=== PATIENT | male | born 1965 | race Caucasian/White ===

== ENCOUNTER → 2017-06-15 | Outpatient (CLI) | payer OTHER ==
[~2017-06-15] VITALS: Ht 177.8 cm; Wt 151.1 kg
[~2017-06-15] MED LIST: METAMUCIL PO; RANI150T3 PO
[2017-06-15 13:09] VITALS: BP 136/91; PULSE 88; Ht 177.8 cm; Wt 151.1 kg
== END | disposition home or self-care (01) ==
LOC: C.NEUR 12:50
PROVIDERS: ATTEND Physician Assistant Medical
DX: G47.30 Sleep apnea, unspecified (principal); E66.01 Morbid (severe) obesity due to excess calories; Z68.41 Body mass index [BMI] 40.0-44.9, adult; R03.0 Elevated blood-pressure reading, without diagnosis of hypertension

== ENCOUNTER → 2017-06-30 | Outpatient (CLI) | payer OTHER ==
--- NOTE | 2017-07-02 16:34 | POLYSOMNOGRAPH REPORT ---
CLINICAL DATA: A 52-year-old male referred by Laura Chaudhari and Dr. Nixon for a sleep study. He had a sleep study in 2004 and was on auto CPAP with very poor compliance. 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 He was sent for a home sleep apnea test to determine the severity of the sleep apnea. He does have a BMI of 47.8. On the evening of 06/30/2017, a home sleep apnea was performed a Panvidea type 3 monitor. RECORDING RESULTS: Total recording time was 10 hours. The patient's estimated sleep time and the patient monitoring time was 8.6 hours. RESPIRATORY DATA: Severe sleep apnea was documented. The LAMONTE was 40.3. There were 214 obstructive, 50 mixed, and 1 central apneic episode. There were 80 hypopneic episodes. The longest respiratory event was 81 seconds. OXIMETRY DATA: Significant nocturnal hypoxemia was seen. Oxygen cindy was 59%. Mean saturation was 87%. Time below 89% was 196 minutes. HEART RATE DATA: Heart rates ranged from 54-79 beats per minute. SNORING DATA: Snoring was recorded throughout the night. NEWS EDITOR'S COMMENTS: The patient was snoring throughout the test. He had many episodes seen. The patient stated he did not sleep very well after 3:00 a.m. which correlates with the time when he had the majority of his apneic episodes occurring. He also had more significant oxygen desaturation at that time. IMPRESSION: Severe sleep apnea/hypopnea with severe nocturnal hypoxemia. RECOMMENDATIONS: The patient would benefit from a CPAP titration study since he had difficulty with auto CPAP in the past. AIXA
== END | disposition home or self-care (01) ==
LOC: C.NEUR 09:00
PROVIDERS: ATTEND Physician Assistant Medical
DX: G47.30 Sleep apnea, unspecified (principal)

== ENCOUNTER → 2017-07-20 | Outpatient (CLI) | payer OTHER ==
[~2017-07-20] VITALS: Ht 179.1 cm; Wt 153.1 kg
[2017-07-20 14:13] VITALS: BP_SYST 126; BP_SYST 132; BP_DIAS 88; BP_DIAS 90; PULSE 103; PULSE 112; Ht 179.1 cm; Wt 153.1 kg
== END | disposition home or self-care (01) ==
LOC: C.NEUR 12:34
PROVIDERS: ATTEND Physician Assistant Medical
DX: G47.33 Obstructive sleep apnea (adult) (pediatric) (principal); G47.34 Idiopathic sleep related nonobstructive alveolar hypoventilation; E66.01 Morbid (severe) obesity due to excess calories; Z68.41 Body mass index [BMI] 40.0-44.9, adult; F43.20 Adjustment disorder, unspecified; Z72.0 Tobacco use; F32.9 Major depressive disorder, single episode, unspecified

== ENCOUNTER → 2017-08-10 | Outpatient (CLI) | payer OTHER ==
--- NOTE | 2017-08-11 06:49 | PAP/PSG TECHNICIAN REPORT ---
[facility] Wrapper Sorter Polysomnogram Report Study name: None Report date: 08/11/2017 Study date: 08/10/2017 Referring Physician: Laura Chaudhari PA-C Name: LOBO DIANA Interpreting Physician: Renny Young M.D. Date of : 1965 Wrapper Sorter: Kin Quick RPSGT. Sex: Male Age: 52 StudyType: PSG PAP Weight: 337 lbs 18 inches Height: 52 years, Height 5' 10" Neck Circum: BMI: 48.35 Medications: ZANTAC 75 MG Patient History PATIENT HAD A SLEEP STUDY DONE IN 2004 AND WAS POSITIVE FOR MILD YESSI. HE WORE CPAP FOR ABOUT A YEAR AND THEN GAVE UP ON IT FROM INTOLERANCE. HE RECENTLY HAD A HOME SLEEP STUDY DONE AND RESULTS SHOWED AN LAMONTE OF 40.3. HE IS HERE TODAY FOR A CPAP TITRATION. ESS = 11 RM 6 Parameters Monitored NPSG: E1-M2, E2-M1, Fp1-M2, Fp2-M1, F3-M2, F4-M2, F4-M1, C3-M2, C4-M2, C4-M1, O1-M2, O2-M2, O2-M1, T3-M2, T4-M1, P3-M2, P4-M1, CHIN1, CHIN2, HR, EKG, Legs, PFLOW, SNOR, FLOW, CFLOW, Tidal Volume, THOR, ABDO, SpO2, PLTH, CPRESS, ETCO2 Wave, ETCO2, pH Sleep Architecture Sleep Stages Time at Lights Off 10:50:31 PM STAGES Time (min.) TST (%) Time at Lights On 5:46:31 AM Wake 107.5 -- Total Recording Time (TRT) 416.50 min. N1 17.0 6 Total Sleep Period (TSP) 387.0 min. N2 154.0 50 Total Sleep Time (TST) 308.5min. N3 53.5 17 Awake Time 108.0 min. REM 84.0 27 Wake after Sleep Onset 78.5 min. Sleep Efficiency (SE) 74 % Sleep Onset Latency (SACHIN) 29.0 min. Number of Stage 1 Shifts None Awakenings 23 Stage Changes 67 Number of REM periods 3 REM 84.0 27 REM Latency 137.5 min. NREM 224.5 73 Body Position Analysis Supine Right Left Side Prone Vertical Total Sleep Time (min.) 176.3 206.5 0.0 206.50 0.0 0.0 Total Sleep Time (%) 33% 67% 0% 67 0% N/A% Total Sleep Time REM (min.) 30.5 53.5 0.0 None 0.0 0.0 Total Sleep Time NREM (min.) 71.5 153.0 0.0 None 0.0 0.0 Intermittent Wake (min.) 74.3 33.2 0.0 None 0.0 0.0 Total Sleep Period (%) 38% None None None None None Arousals Myoclonus (PLM) * Events Count Index Events Count Index Spontaneous 18 4 Events Awake (PLMW) 65 36.3 Respiratory 17 3.7 Events Asleep w/ Arousal (PLMA) 2 0.4 PLM 2 0 Events Asleep w/o Arousal (PLMS) 62 12.1 Snoring 7 1 Total Asleep 64 12.4 Total 43 8 Total 129 19 Respiratory Analysis * CA OA MA CH H RERA Total Count 4 10 0 0 70 2 84 Index 0.8 1.9 0.0 0 13.6 0 16.7 Mean Duration 20.3 12.8 0.0 0.00 20.3 14.1 19.3 Longest Duration 30.3 19.6 0.0 0.00 0.0 14.4 49.0 Respiratory Event Summary Total Supine ~Supine Right Left Prone REM NREM Apneas Count 14 12 2 2 N/A N/A 4 10 Index 2.7 7 1 0.6 N/A N/A 3 3 Hypopneas (4% Desat) Count 70 6 64 64 N/A N/A 6 64 Index 13.6 3.5 19 18.6 N/A N/A 4.3 17.1 Apneas & All Hypopneas Count 84 18 66 66 N/A N/A 10 74 Index 16.3 11 19 19 N/A N/A 7.1 19.8 Respiratory Events (Technical Program Manager+All Hyp+RERA) Count 84 19 67 67 N/A N/A 10 74 Index 16.7 11 19 19.5 N/A N/A 7.1 20.3 Respiratory Related Arousal Count 17 19 11 11 N/A N/A 0 19 Index 3.7 5 3 3 N/A N/A 0 5 Snoring Analysis Supine Right Left Prone REM NREM Total Snore duration 30.3 min Snores count 30 1,009 N/A N/A 3 1,036 1,039 Snore mean duration 1.7 Sec Snores index 18 293 N/A N/A 2.1 276.9 202.1 TST with snoring (%) 9.8% Desaturation Event Summary: Minimum %SpO2 Event Count Mean/Min/Max Duration(sec.) Desaturation Index % Time In Bed > 90 62 28.7 / 4.5 / 61.2 12.0 76.3 86 - 90 13 38.7 / 4.3 / 68.3 13.4 14.3 81 - 85 20 22.8 / 6.3 / 57.2 92.9 3.2 76 - 80 31 19.6 / 7.0 / 73.4 98.3 4.7 71 - 75 7 13.4 / 7.0 / 23.3 64.7 1.6 66 - 70 0 N/A 0.0 0.0 61 - 65 0 N/A 0.0 0.0 56 - 60 0 N/A 0.0 0.0 51 - 55 0 N/A 0.0 0.0 < 50 0 N/A 0.0 0.0 Total REM NREM Awake <50% 0.0 min. 0.0 min. 0.0 min. 0.0 min. 51 - 60% 0.0 min. 0.0 min. 0.0 min. 0.0 min. 61 - 70% 0.0 min. 0.0 min. 0.0 min. 0.0 min. 71 - 80% 25.4 min. 0.0 min. 25.4 min. 0.0 min. 81 - 90% 71.1 min. 12.7 min. 40.0 min. 18.4 min. 91 - 100% 309.8 min. 71.2 min. 158.7 min. 80.0 min. Average 91 92 90 92 Minimum SpO2 71 84 71 81 Desaturation Event Index 16.4 8.6 21.6 11.7 # Desat. Events below 89% 76 4 68 4 Time(%) with Saturation below 89% 13.1 0.3 11.9 0.9 Time(min.) with Saturation below 89% 53.2 1.4 48.2 3.6 Time (mins) REM (mins) NREM (mins) % of TST SpO2 Below 90% 89 9 N80 19.0 SpO2 Below 88% 32 0 0 14 Heart Rate Analysis Min (bpm) Max (bpm) Average (bpm) Awake 66 132 85 NREM 68 127 86 REM 76 108 92 Overall 68 127 88 Supplemental O2 Values Minimum O2 level: None Value Start Time End Time Wrapper Sorter Comments Mr. Diana slept in the right and supine positions. No cardiac arrhythmia noted. Leg movements noted. No bruxism noted. CPAP was initiated at +4 CMH2O and up-titrated to an optimal level of +16 CMH2O, which nearly eliminated all respiratory events and snoring. A Resmed Air touch F20 full face size medium mask was used during titration Mr. Diana awoke to use the restroom 1 time during the night. Mr. Diana stated I slept as well as I do when I am in my own bed. The final report will be interpreted and signed by a sleep physician. The completed physician report will then be placed in the patient medical record. Therapy Event: Therapy (cm H20) 4 5 6 7 8 9 10 Total Time at Pressure (min.) 53.7 21.2 6.0 19.4 8.2 8.8 10.5 TST at Pressure (min.) 5.7 2.7 3.5 5.4 8.2 6.3 10.5 # Periods 1 1 1 1 1 1 1 Sleep Onset (min.) 29.0 0.0 0.0 0.0 0.0 0.0 0.0 REM Onset (min.) N/A N/A N/A N/A N/A N/A N/A Sleep Efficiency % 10 12 58 27 100 71 100 Wakefulness (%) 89.4 87.3 41.5 72.2 0.0 28.4 0.0 Wakefulness (min.) 48.0 18.5 2.5 14.0 0.0 2.5 0.0 NREM 1 (%) 10.6 10.3 27.3 18.0 6.1 5.7 0.0 NREM 1 (min.) 5.7 2.2 1.6 3.5 0.5 0.5 0.0 NREM 2 (%) 0.0 2.4 31.2 9.8 93.9 65.9 74.2 NREM 2 (min.) 0.0 0.5 1.9 1.9 7.7 5.8 7.8 NREM 3 (%) 0.0 0.0 0.0 0.0 0.0 0.0 25.8 NREM 3 (min.) 0.0 0.0 0.0 0.0 0.0 0.0 2.7 REM (%) 0.0 0.0 0.0 0.0 0.0 0.0 0.0 REM (min.) 0.0 0.0 0.0 0.0 0.0 0.0 0.0 # Arousals 8 4 3 2 5 5 2 Arousal Index 84.7 89.4 51.1 22.3 36.8 47.6 11.4 # Snore 15 1 2 34 95 54 182 Snore Index 158.8 22.3 34.1 378.3 699.0 514.5 1,041.7 AHI 31.8 67.0 102.2 22.3 66.2 57.2 28.6 AHI Supine 31.8 67.0 102.2 107.0 N/A N/A N/A AHI Non-Supine N/A N/A N/A 0.0 66.2 57.2 28.6 NREM AHI 31.8 67.0 102.2 22.3 66.2 57.2 28.6 REM AHI N/A N/A N/A N/A N/A N/A N/A RDI 31.8 89.4 102.2 22.3 73.6 57.2 28.6 # Obstructive 2 2 3 2 1 0 0 # Central Ap 0 0 0 0 0 0 0 # Mixed 0 0 0 0 0 0 0 # Hypopneas 1 1 3 0 8 6 5 RERAS 0 1 0 0 1 0 0 Total Respiratory Events 3 4 6 2 10 6 5 Time Below SpO2 89.00% (min.) 0.1 0.2 0.1 1.5 3.7 2.9 7.9 Mean NREM SpO2 (%) 91 91 91 90 89 89 86 Mean REM SpO2 (%) N/A N/A N/A N/A N/A N/A N/A Mean Sleep SpO2 (%) 91 91 91 90 89 89 86 Min NREM SpO2 (%) 88 87 88 88 83 82 79 Min REM SpO2 (%) N/A N/A N/A N/A N/A N/A N/A Position Supine (min.) 5.7 2.7 3.5 1.1 0.0 0.0 0.0 Position Non-supine (min.) 0.0 0.0 0.0 4.3 8.2 6.3 10.5 LM Index Sleep 0.0 0.0 0.0 0.0 36.8 38.1 34.3 LM Index NREM 0.0 0.0 0.0 0.0 36.8 38.1 34.3 LM Index REM N/A N/A N/A N/A N/A N/A N/A Mean Heart Rate (bpm) 76 77 76 77 79 80 83 Min Heart Rate (bpm) 68 68 72 73 69 75 71 Therapy (cm H20) 11 12 13 14 15 16 Total Time at Pressure (min.) 8.1 7.3 9.7 12.0 140.2 111.1 TST at Pressure (min.) 8.1 7.3 9.7 12.0 133.2 96.1 # Periods 1 1 1 1 1 1 Sleep Onset (min.) 0.0 0.0 0.0 0.0 0.0 0.0 REM Onset (min.) N/A N/A N/A N/A 1.7 0.0 Sleep Efficiency % 100 100 100 100 95 86 Wakefulness (%) 0.0 0.0 0.0 0.0 5.0 13.5 Wakefulness (min.) 0.0 0.0 0.0 0.0 7.0 15.0 NREM 1 (%) 0.0 0.0 0.0 0.0 0.7 1.8 NREM 1 (min.) 0.0 0.0 0.0 0.0 1.0 2.0 NREM 2 (%) 0.0 0.0 0.0 75.3 44.9 50.9 NREM 2 (min.) 0.0 0.0 0.0 9.0 63.0 56.5 NREM 3 (%) 100.0 100.0 100.0 24.7 16.2 0.0 NREM 3 (min.) 8.1 7.3 9.7 3.0 22.7 0.0 REM (%) 0.0 0.0 0.0 0.0 33.1 33.8 REM (min.) 0.0 0.0 0.0 0.0 46.4 37.6 # Arousals 3 0 3 1 2 5 Arousal Index 22.3 0.0 18.5 5.0 0.9 3.1 # Snore 146 140 194 145 18 13 Snore Index 1,087.5 1,146.6 1,197.6 727.7 8.1 8.1 AHI 89.4 106.5 67.9 5.0 4.1 2.5 AHI Supine N/A N/A N/A N/A N/A 2.7 AHI Non-Supine 89.4 106.5 67.9 5.0 4.1 0.0 NREM AHI 89.4 106.5 67.9 5.0 2.1 0.0 REM AHI N/A N/A N/A N/A 7.8 6.4 RDI 89.4 106.5 67.9 5.0 4.1 2.5 # Obstructive 0 0 0 0 0 0 # Central Ap 0 0 0 0 1 3 # Mixed 0 0 0 0 0 0 # Hypopneas 12 13 11 1 8 1 RERAS 0 0 0 0 0 0 Total Respiratory Events 12 13 11 1 9 4 Time Below SpO2 89.00% (min.) 8.0 7.3 9.6 6.5 0.3 1.5 Mean NREM SpO2 (%) 80 77 77 85 93 92 Mean REM SpO2 (%) N/A N/A N/A N/A 93 92 Mean Sleep SpO2 (%) 80 77 77 85 93 92 Min NREM SpO2 (%) 73 71 71 75 90 88 Min REM SpO2 (%) N/A N/A N/A N/A 87 84 Position Supine (min.) 0.0 0.0 0.0 0.0 0.0 89.0 Position Non-supine (min.) 8.1 7.3 9.7 12.0 133.2 7.1 LM Index Sleep 29.8 8.2 18.5 0.0 11.3 10.0 LM Index NREM 29.8 8.2 18.5 0.0 13.1 1.0 LM Index REM N/A N/A N/A N/A 7.8 24.0 Mean Heart Rate (bpm) 90 92 94 95 91 86 Min Heart Rate (bpm) 82 82 83 85 76 76
--- NOTE | 2017-08-11 19:27 | POLYSOMNOGRAPH REPORT ---
CLINICAL DATA: 52-year-old male with BMI of 48.4 referred by Laura Chaudhari, myself and Dr. Nixon for a CPAP titration study. He had a sleep study in 2004 which showed mild sleep apnea. Her wore CPAP for a year and then stopped because of intolerance. He had a home sleep apnea test performed recently which showed severe sleep apnea with an LAMONTE of 40.3. His [place] sleepiness score is 11/24. SLEEP ARCHITECTURE: Total sleep period was 387 minutes. Total sleep time was 308.5 minutes divided between 224.5 minutes of non-REM sleep and 84 minutes of REM sleep. Sleep onset latency was 29 minutes. REM latency was 137.5 minutes. Sleep efficiency was 74%. Wake after sleep onset was 78.5 minutes. Sleep consisted of stage N1 6%, stage N2 50%, stage N3 17%, and REM 27%. AROUSAL DATA: 43 arousals were recorded for an index of 8 per hour. PLM DATA: 64 limb movements during sleep were noted for an index of 12.4 per hour with arousal index of 0.4 per hour. RESPIRATORY DATA: The AHI was 16.3. There were 4 central and 10 obstructive apneic episodes. The longest duration of apnea was 30.3 seconds. There were 70 hypopneic episodes with a mean duration of 20.3 seconds. OXIMETRY DATA: Nocturnal hypoxemia was seen. Oxygen cindy was 71% during non-REM sleep. Mean saturation was 91%. Time below 88% was 32 minutes. EKG: Heart rates ranged from 68-127 beats per minute. No arrhythmias were noted. CERTIFIED MASTER SAFE TECHNICIAN'S COMMENTS AND TREATMENT SUMMARY: The patient slept in the right and supine positions. He used a ResMed Air Touch F20 full facemask size medium. He was started on CPAP and titrated up to his final pressure setting of 16 cm water pressure. At his final pressure setting, he slept for 96 minutes with an AHI of 2.5. IMPRESSION: Severe sleep apnea/hypopnea corrected with CPAP 16 cm water pressure using a ResMed Air Touch F20 full face size medium mask. RECOMMENDATIONS: The patient should be started on the above noted treatment regimen and seen back in followup within 90 days to document efficacy and compliance. [facility]ITAL[facility]
== END | disposition home or self-care (01) ==
LOC: C.NEUR 21:00
PROVIDERS: ATTEND Physician Assistant Medical
DX: G47.33 Obstructive sleep apnea (adult) (pediatric) (principal)

== ENCOUNTER 2022-03-01 18:21 | Inpatient (IN) ==
[2022-03-01] MEDS ORDERED: NITROGLYCERIN SL 0.4 MG/TAB TAB SL PRN (19:19)
[2022-03-01] MEDS ORDERED: ASPIRIN CHEW 324 MG PO STA (19:19)
[2022-03-01] MEDS ORDERED: SODIUM CHLORIDE 0.9% 1000ML 1,000 ML IV ONE (19:31)
--- NOTE | 2022-03-01 19:31 | Emergency Department Note ---
History of Present Illness General Chief Complaint: Shortness of Breath/Dyspnea Stated Complaint: SOB, CHEST TIGHTNESS, R LEG SWELLING Time Seen by Provider: 03/01/22 19:07 History of Present Illness Provider Complaint: shortness of breath Onset (ago): day(s) Severity: moderate Consistency/Duration: + improved Relieved By: + rest Exacerbated By: + exertion Context: no recent illness, no occurred during exertion, no choking/aspiration, no medication noncompliance, no recent travel or no trauma/injury Associated symptoms: + chest pain, + lower extremity pain (Lower extremity swelling and pain no trauma) and + palpitations; no pain with inspiration, no fever, no cough, no sputum production, no polyuria, no paresthesias, no hem optysis, no diaphoresis, no nausea/vomiting, no syncope, no abdominal pain, no rash, no sense of impending doom, no chest congestion or no lightheadedness Treatment prior to arrival: none Home Medications Medication Instructions Recorded Confirmed Type No Known Home Medications 01/31/21 03/01/22 History Allergies Allergy/AdvReac Type Severity Reaction Status Date / Time No Known Drug Allergies Allergy Unknown N/A Verified 03/01/22 19:50 Past Med/Surg History Medical History (Updated 03/01/22 @ 22:07 by Lucas Klein) Diabetes mellitus, type 2 no meds, diet controlled Morbid obesity with BMI of 40.0-44.9, adult Sleep apnea cpap Surgical History History of arthroscopy of left knee meniscus repair History of colonoscopy with polypectomy History of esophagogastroduodenoscopy (EGD) History of wisdom tooth extraction Family History Father Sleep apnea Congestive heart failure COPD (chronic obstructive pulmonary disease) Grandfather (Paternal) Family history of diabetes mellitus Other No family history of adverse response to anesthesia Social History Smoking Status: Never smoker Tobacco Type: Smokeless Tobacco (Dip or Chew) Second Hand Exposure: No; Hx Alcohol Use: Yes Alcohol type: beer Hx Substance Use: No Preferred Language: Kiswahili Communication Ability: Effective Child Care Attendant Required: No Beliefs That Will Affect Care: None marital status: Current Living Situation: Spouse current occupational status: employed Feels Safe at Home: Yes Assistive Devices: CPAP and Glasses Review of Systems A total of 10 systems reviewed and were otherwise negative Physical Exam Vital Signs: Vital Signs - 24 hr 03/01/22 18:22 03/01/22 18:43 03/01/22 19:20 Temperature 37.0 C 36.8 C Temperature Source Oral Temporal Artery Sc an Pulse Rate 110 H 105 H Pulse Rate [Right Finger] 104 H Pulse Rhythm Regular Pulse Rhythm [Righ t Finger] Regular Pulse Strength [Ri ght Finger] Normal Respiratory Rate 20 20 Respiratory Effort / Characteristics Non-Labored Respiratory Depth Normal Respiratory Patter n Regular Blood Pressure 140/96 Blood Pressure [Ri ght Arm] 147/100 H Blood Pressure Melody n 110 Blood Pressure Melody n [Right Arm] 115 Blood Pressure Pos ition Sitting Blood Pressure Pos ition [Right Arm] Lying Pulse Oximetry 93 94 93 Oxygen Delivery Me thod Room Air Room Air Room Air Sepsis Recent Feve r Within 48 Hours No Sepsis New/Unexpla ined Change in Men ayan Status No Sepsis Action Take n by Nursing No Action Required Physical Exam: Physical Exam GENERAL: He is oriented to person, place, and time. He appears well-developed and well-nourished. He does not appear distressed. HENT: Exam performed. - Head: Normocephalic and atraumatic. - Right Ear: External ear normal. No mastoid tenderness. - Left Ear: External ear normal. No mastoid tenderness. - Mouth/Throat: The oropharynx is clear and moist. No trismus in the jaw. No dental abscesses or uvula swelling. No oropharyngeal exudate or tonsillar abscesses. EYES: Conjunctivae and EOM are normal. Pupils are equal, round, and reactive to light. Right eye exhibits no discharge. Left eye exhibits no discharge. No scleral icterus. NECK: Normal range of motion. Neck supple. No JVD present. No spinous process tenderness present. No carotid bruit present. No rigidity. No tracheal deviation and normal range of motion present. No Brudzinski's sign and no Kernig's sign noted. CV: Tachycardic rate, regular rhythm, normal heart sounds and intact distal pulses. Palpable radial pulses bue. PULM/CHEST: Effort normal and breath sounds normal. No respiratory distress. No stridor. He has no wheezes. He has no rales. - Chest Wall: He exhibits no tenderness. ABD: The abdomen is soft. Bowel sounds are normal. He has no distension. No mass is present. There is no tenderness. There is no rebound, no guarding, no Odom's sign and no tenderness at McBurney's point. Rovsig negative. MUSC/SKEL: Swelling and tenderness over the right lower extremity. Palpable DP and PT pulses bilateral lower extremities. Compartment soft bilaterally. NEURO: He is alert and oriented to person, place, and time. He has normal strength. No cranial nerve deficit or sensory deficit. Coordination and gait normal. GCS eye subscore is 4. GCS verbal subscore is 5. GCS motor subscore is 6. Cerebellar tests wnl. SKIN: Skin is warm and dry. He is not diaphoretic. PSYCH: He has a normal mood and affect. Behavior is normal. Judgment and thought content normal. Course Course 1906: The patient was evaluated in room A2. A complete history and physical exam was performed Cardiac monitoring: An order was placed for continuous cardiac monitoring. The monitor shows a rate of 110 with sinus tachycardia rhythm 220: Patient remains tachycardic. Oxygen saturation stable on room air. Labs show elevated troponin. Ultrasound of the lower extremity shows an extensive DVT in the popliteal posterior tibial anterior tibial and peroneal vein. There is also a large saddle PE bilateral lobar segmental and subsegmental pulmonary emboli in all lungs bilaterally with severe clot burden greater on the left. There is right ventricular strain. [facility] with [facility] his asking to speak with ICU if the patient needs tPA. Clinically it does not appear the patient needs thrombolytics at this time as he has normal blood pressure normal oxygen saturation and is in no respiratory distress. Heparin started for the patient. 2214: Spoke with ICU team who states that the patient is stable at this facility and no need for tPA at this time. Patient will be admitted to the ICU. [facility] hospitalist Dr. Traore who will evaluate the patient. Administered Medications Heparin Sodium/Dextrose (Heparin Sodium/Dextrose) 25,000 units in 500 mls @ 36 mls/hr IV .[id number] [facility]; Protocol Stop: 03/31/22 21:59 Last Admin: 03/01/22 22:04 Dose: 1,800 units/hr, 36 mls/hr Documented by: [id number] Cosigned by: [id number] Nitroglycerin (Nitroglycerin Sl 0.4 Mg/Tab Tab) 0.4 mg SL UD PRN PRN Reason: Chest Pain Stop: 03/31/22 19:18 Last Admin: 03/01/22 19:32 Dose: 0.4 mg Documented by: [id number] Discontinued Medications Aspirin (Aspirin Chew 324 Mg) 324 mg PO NOW STA Stop: 03/01/22 19:20 Last Admin: 03/01/22 19:31 Dose: 324 mg Documented by: [id number] Heparin Sodium (Porcine) (Heparin Sod (Porcine) 1000 Unit/Ml) 1 units IV NOW ONE Stop: 03/01/22 21:47 Last Admin: 03/01/22 22:04 Dose: 1 units Documented by: [id number] Cosigned by: [id number] Heparin Sodium/Dextrose (Heparin Iv Adult Wt-Based Standard With Bolus Protocol) 1 ea IV NOW STA; Protocol Stop: 03/01/22 21:32 Last Admin: 03/01/22 22:03 Dose: 1 ea Documented by: [id number] Sodium Chloride (Nss 1000ml) 1,000 mls @ 999 mls/hr IV .Q1H1M ONE Stop: 03/01/22 20:31 Last Infusion: 03/01/22 22:12 Dose: 0 mls/hr Documented by: [id number] Admin: 03/01/22 19:32 Dose: 999 mls/hr Documented by: [id number] Ioversol (Optiray 320 125ml) 120 ml IV ONCE ONE Stop: 03/01/22 20:28 Last Admin: 03/01/22 20:27 Dose: 120 ml Documented by: [id number] Medical Decision Making Laboratory Data Result diagrams: 03/01/22 19:15 03/01/22 19:15 Lab Results 03/01/22 03/01/22 03/01/22 Range/Units 19:15 19:15 19:15 WBC 7.91 (4.8-10.8) K/uL RBC 5.40 (4.7-6.1) M/uL Hgb 17.0 (14.0-18.0) g/dL Hct 49.0 (42-52) % MCV 90.7 (80-100) fL MCH 31.5 (25-34) pg MCHC 34.7 (32-36) g/dL RDW Std Deviation 43.5 (36.4-46.3) fL RDW Coeff of Deepak 13.1 (11.5-14.5) % Plt Count 188 (130-400) K/uL MPV 10.2 (7.4-10.4) fL Immature Gran % (Auto) 0.6 % Neut % (Auto) 70.2 % Lymph % (Auto) 16.8 % Karnes % (Auto) 10.6 % Eos % (Auto) 1.4 % Baso % (Auto) 0.4 % Neut # (Auto) 5.55 (1.4-6.5) K/uL Lymph # (Auto) 1.33 (1.2-3.4) K/uL Karnes # (Auto) 0.84 H (0.11-0.59) K/uL Eos # (Auto) 0.11 (0-0.5) K/uL Baso # (Auto) 0.03 (0-0.2) K/uL Immature Gran # (Auto) 0.05 H (0.00-0.02) K/uL PT 11.5 (9.0-12.0) Seconds INR 1.1 (0.9-1.1) APTT 26.6 (21.0-31.0) Seconds PTT Ratio 1.0 Sodium 135 L (136-145) mmol/L Potassium 4.0 (3.5-5.1) mmol/L Chloride 101 (98-107) mmol/L Carbon Dioxide 21 (21-32) mmol/L Anion Gap 13 H (3-11) BUN 13 (6-23) mg/dl Creatinine 0.95 (0.6-1.4) mg/dl Est Cr Clr Drug Dosing 123.6 ml/min Est GFR ( Amer) 103.3 ml/min Est GFR (Non-Af Amer) 89.1 ml/min BUN/Creatinine Ratio 13.7 (10-20) Glucose 324 H* (70-99(Fasting)) mg/dl Calcium 9.2 (8.5-10.1) mg/dl Troponin I High Sens 70.7 H* (0-20) pg/ml Lipase 19 (11-82) U/L Imaging Data Radiologist's Impression: PreliminaryFindingsOnly See Final Report For Complete Findings CTACHEST: Acute saddle pulmonaryembolism. Bilateral lobar, segmental, and subsegmental pulmonaryemboli involving all lung lobes bilaterally. Severe clot burden, greater on the left side. Positive for right ventricular strain. RV/LVratio measures 2.0. Coronaryatherosclerosis. Normal heart size, without pericardial effusion. No thoracic aortic aneurysmor dissection. Chronic granulomatous disease. No consolidation or pulmonaryinfarct. No pleural effusion or pneumothorax. Calcified splenic granulomas. No acute osseous findings. Radiologist: Katie Shin M.D. Study ready at 20:35 and initial results transmitted at 21:29 Communications: Clear Time Type Notes 03/01/22 21:30 Call Doctor Regarding PulmonaryEmbolism, called Dr. Pat on 03/01 21:29 (-04:00) PreliminaryFindingsOnly See Final Report For Complete Findings US VENOUS RIGHT LOWER EXTREMITY: Extensive acute DVT in the right lower extremityveins. Nonocclusive DVT in the femoral vein. Occlusive DVT in the popliteal vein, posterior tibial vein, anterior tibial vein, and peroneal vein. Occlusive superficial thrombophlebitis of the small saphenous vein. Radiologist: Katie Shin M.D. Study ready at 20:32 and initial results transmitted at 21:26 ECG Data Interpretation: Sinus tachycardia with rate of 106. VA QRS and QTc intervals within normal limits. No ST elevation or ST depression. [facility] Narrative 1907: The patient was evaluated in room A2. A complete history and physical exam was performed Cardiac monitoring: An order was placed for continuous cardiac monitoring. The monitor shows a rate of 110 with sinus tachycardia rhythm 2202: Patient remains tachycardic. Oxygen saturation stable on room air. Labs show elevated troponin. Ultrasound of the lower extremity shows an extensive DVT in the popliteal posterior tibial anterior tibial and peroneal vein. There is also a large saddle PE bilateral lobar segmental and subsegmental pulmonary emboli in all lungs bilaterally with severe clot burden greater on the left. There is right ventricular strain. Discussed with [facility] hospitalist team his asking to speak with ICU if the patient needs tPA. Clinically it does not appear the patient needs thrombolytics at this time as he has normal blood pressure normal oxygen saturation and is in no respiratory distress. Heparin started for the patient. 2215: Spoke with ICU team who states that the patient is stable at this facility and no need for tPA at this time. Patient will be admitted to the ICU. [facility] hospitalist Dr. Traore who will evaluate the patient. Impression & Plan Pulmonary embolism, DVT (deep venous thrombosis) Critical Care Time Critical Care Time: Yes Total Critical Care Time: 65 I have personally spent greater than 65 minutes of critical care time in the direct management of this patient. This includes bedside care, interpretation of diagnostic studies, and testing, discussion with consultants, patient, and family members, and other required patient management activities. This 65 minutes is in excess of all separately billable procedures. Discharge Plan Visit Data Chief Complaint: Shortness of Breath/Dyspnea Stated Complaint: SOB, CHEST TIGHTNESS, R LEG SWELLING ED Provider: Lucas Klein Discharge Problem: Pulmonary embolism, DVT (deep venous thrombosis) Patient Disposition: Admitted As Inpatient Forms Stand Alone Forms: [facility] Prescriptions Prescriptions: No Action No Known Home Medications RF: 0 Referrals Referrals: Davi Nixon MD [Primary Care Provider] - Discharge Problem: Pulmonary embolism Qualifiers: Pulmonary embolism type: saddle Chronicity: acute Acute cor pulmonale presence: with acute cor pulmonale Qualified Code(s): I26.02 - Saddle embolus of pulmonary artery with acute cor pulmonale DVT (deep venous thrombosis) Qualifiers: DVT location: lower extremity Affected thrombotic vein of extremity: unspecified vein of extremity Chronicity: acute Laterality: unspecified laterality Qualified Code(s): I82.409 - Acute embolism and thrombosis of unspecified deep veins of unspecified lower extremity
[2022-03-01 19:39] LABS: Basophils # (auto) 0.03 K/uL (0-0.2); Basophils % (auto) 0.4 %; Eosinophils # (auto) 0.11 K/uL (0-0.5); Eosinophils % (auto) 1.4 %; Immature Granulocytes # (auto) 0.05 K/uL (0.00-0.02); Immature Granulocytes % (auto) 0.6 %; Lymphocytes # (auto) 1.33 K/uL (1.2-3.4); Lymphocytes % (auto) 16.8 %; Mean Corpuscular Hemoglobin 31.5 pg (25-34); Mean Corpuscular Hgb Conc 34.7 g/dL (32-36); Mean Corpuscular Volume 90.7 fL (80-100); Mean Platelet Volume 10.2 fL (7.4-10.4); Monocytes # (auto) 0.84 K/uL (0.11-0.59); Monocytes % (auto) 10.6 %; Neutrophils # (auto) 5.55 K/uL (1.4-6.5); Neutrophils % (auto) 70.2 %; Platelet Count 188 K/uL (130-400); RDW Coefficient of Variation 13.1 % (11.5-14.5); RDW Standard Deviation 43.5 fL (36.4-46.3); White Blood Count 7.91 K/uL (4.8-10.8)
--- NOTE | 2022-03-01 19:46 | XRay Report ---
XR chest 1V portable HISTORY: Atypical chest pain. Shortness of breath. COMPARISON: None. FINDINGS: The cardiac silhouette is top normal in size. There is mild central pulmonary vascular cristopher estion without overt edema. No focal lung consolidations to suggest pneumonia. No pleural effusions. No pneumothorax. IMPRESSION: Mild central pulmonary vascular congestion without overt edema. ACT 112: Negative or not required by law. Electronically signed by: Otto Platt M.D. 03/01/2022 7:45 PM
[2022-03-01 19:51] LABS: INR 1.1 (0.9-1.1); Partial Thromboplastin Time 26.6 Seconds (21.0-31.0); Prothrombin Time 11.5 Seconds (9.0-12.0)
[2022-03-01 20:01] LABS: BUN Creatinine Ratio 13.7 (10-20); Calcium 9.2 mg/dl (8.5-10.1); Creatinine Clr Calc Pharmacy 123.6 ml/min; Est GFR (African American) 103.3 ml/min; Est GFR (Non-African American) 89.1 ml/min
[2022-03-01 20:08] LABS: Troponin I High Sensitivity 70.7 pg/ml (0-20)
[2022-03-01] MEDS ORDERED: OPTIRAY 320 125ml IV ONE (20:27)
[2022-03-01] MEDS ORDERED: Heparin IV Adult Wt-Based Standard WITH Bolus Protocol IV STA (21:31)
[2022-03-01] MEDS ORDERED: HEPARIN SOD (PORCINE) 1000 UNIT/ML IV ONE (21:46)
[2022-03-01] MEDS: HEPARIN SODIUM/DEXTROSE 25,000 UNITS/500 ML BAG IV SCH (22:04)
[2022-03-01 23:10] LABS: Albumin Level 3.9 gm/dl (3.4-5.0); Bilirubin Direct 0.2 mg/dl (0-0.2); Bilirubin,Total 1.1 mg/dl (0.2-1.0); Total Protein 7.1 gm/dl (6.0-8.3)
[2022-03-02] MEDS ORDERED: ICU PROTOCOL FOR HYPERGLYCEMIA PRN (00:28)
--- NOTE | 2022-03-02 00:44 | Critical Care Consultation ---
Date of Consultation March 02, 2022 Assessment & Plan (1) Admitted to intensive care unit: Reason Critically Ill: 56-year-old male with acute PE with saddle component requiring close hemodynamic monitoring and initiation of anticoagulation with possible need for progression to thrombolysis. NEURO - * CAM ICU: NEGATIVE CARDIAC/VASCULAR - * Elevated troponin: * Likely Type 2 NSTEMI secondary to demand ischemia in the setting of massive pulmonary clot burden. * EKG w/o significant findings. * w/o Complaints of chest pain. * Trend troponin. * Monitor on tele. * EKG: Sinus tachycardia @ [address]/T-wave changes. QTc 456 ms. * Monitor on telemetry. RESPIRATORY - * Saddle Pulmonary Embolism: * Classified as the intermittent to high risk based on RV strain on CT and elevated troponin. * Patient's hemodynamics have been good to this point. * While he was placed on 2L NC, he was never in fact hypoxic. * Agree with Heparin gtt for now. * Had an extensive discussion w/ patient and at bedside. They are comfortable with current treatment plan with Heparin. They do understand that the patient's condition is very critical and there is the potential that he could worsen and require administration of TPA. They acknowledge their understanding and are in agreement with any approach necessary. * Will allow ongoing degree of hypertension in the preload dependent patient. * Will require his nocturnal CPAP as the has documented "severe" YESSI. Will monitor BP/HR/Sat closely during initiation of CPAP given propensity for preload reduction w/ higher CPAP pressures. Regardless, given patient's degree of YESSI, i do think that the benefits of CPAP in the patient w/ nocturnal hypoxemia outweigh the risks. * If patient were to decline, would start TPA per institution protocols. Have reached out to pharmacy to make them aware of plans in the event of rapid deterioration. GI/NUTRITION - * Progress diet as tolerated. RENAL/LYTES - * No significant electrolyte derangements. - * No concerns at this time. ENDO - * DMII presenting w/ Hyperglycemia: * BSGs per unit protocol. ISS --> gtt per unit policy. * Previously w/ A1c ~7 a few years ago. Was able to improve these numbers with diet and exercise alone. Never required medications. HEME - * PE/DVT: * Currently on Heparin gtt per protocol. * TPA if patient were to decompensate. ID - * No concerns for infectious contribution at this time. LINES/IV ACCESS - * PIVs x3 DVT PROPHYLAXIS - * Heparin gtt * SCDs I have personally spent 45 minutes of critical care time in the direct management of this patient. This is a life/limb threatening event. This includes time spent evaluating patient, direct bedside care, chart review, placing orders, interpretation of diagnostic studies, discussion with consultants, patient, and family members, as well as other required patient management activities. This time is exclusive of all separately billable procedures, and teaching time and separate from and in addition to any other critical care service time. Thank you for allowing us to participate in the care of this patient. Please refer to my attending physician's documentation for any further recommendations. (2) Saddle embolism of pulmonary artery: (3) Pulmonary embolism: (4) DVT (deep venous thrombosis): (5) Nocturnal hypoxemia: (6) Obesity: (7) Severe obstructive sleep apnea: History of Present Illness Attending Physician: Devi Cazares MD History of Present Illness Patient is a 56-year-old male with a significant past medical history of severe obstructive sleep apnea, diabetes, and obesity who presented to the emergency department this evening with an abrupt onset of shortness of breath with exertion. Patient states that he had noticed some increasing swelling and irritation to the RIGHT lower extremity over the last day or so. Upon returning home from camping this weekend, he states that he was attempting to move camping equipment into the house and up a flight of steps. He initially had to stop prison up the steps to collect himself and catch his breath. Eventually, he was able to make it up the rest of the way. He states it took him approximately 30 to 45 minutes to catch his breath. He went back downstairs to the garage in an attempt to move more camping gear, however he reports intense shortness of breath at that time. At this point, his returned and they contacted their adult children who directed them to the emergency department for evaluation and management. Upon assessment in the emergency department, the patient was noted to be slight ly tachycardic and tachypneic. Patient was never with real hypoxia. Troponin was slightly elevated. CTA of the chest demonstrates large pulmonary emboli with saddle component and right heart strain. Ultrasound confirms suspicion of DVT to the RIGHT lower extremity. The patient was started on heparin. He remains hemodynamically stable. Upon my evaluation in the emergency department, the patient is awake, alert, and oriented. He is resting comfortably without tachypnea. He reports that over the last few weeks he has noticed a "odd" cough which he reports tends to worsen with deep inspiration. Despite this, he offers no complaints of significant pleuritic pain, hemoptysis, or shortness of breath prior to today. He states that when the shortness of breath developed today, he obviously had difficulty catching his breath, but otherwise denied any complaints of severe chest pain, palpitations, dizziness, lightheadedness, presyncope, nausea, vomiting, or abdominal discomfort. Patient reports no past medical history of clotting disorders. He states that he has been relatively sedentary over the last few months. Otherwise, there were no other precipitating events. Patient does not smoke. No regular alcohol use. Does chew tobacco regularly. Allergies Allergy/AdvReac Type Severity Reaction Status Date / Time No Known Drug Allergies Allergy Unknown N/A Verified 03/01/22 19:50 Home Medications Medication Instructions Recorded Confirmed Type No Known Home Medications 01/31/21 03/01/22 History Patient History Medical History (Updated 03/02/22 @ 00:58 by Silvestre Angel PA-C) Diabetes mellitus, type 2 no meds, diet controlled Morbid obesity with BMI of 40.0-44.9, adult Sleep apnea cpap Surgical History History of arthroscopy of left knee meniscus repair History of colonoscopy with polypectomy History of esophagogastroduodenoscopy (EGD) History of wisdom tooth extraction Family History Father Sleep apnea Congestive heart failure COPD (chronic obstructive pulmonary disease) Grandfather (Paternal) Family history of diabetes mellitus Other No family history of adverse response to anesthesia Social History Smoking Status: Never smoker Tobacco Type: Smokeless Tobacco (Dip or Chew) Second Hand Exposure: No; Do You Dip or Chew Tobacco: Yes; Hx Alcohol Use: Yes Alcohol type: beer Hx Substance Use: No Preferred Language: Citizen Of [place] Communication Ability: Effective 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 All else were negative. Physical Exam Physical Exam: VITAL SIGNS - Vital signs and nursing notes were reviewed. GENERAL - 56-year-old male appearing his stated age who is in no acute distress. Communicates well with provider and answers questions appropriately. HEAD - NC/AT. EYES - PERRL with EOMI bilaterally. Sclera anicteric. Palpebral conjunctiva pink and moist with no injection noted. EARS - No deformities of external structures noted on gross examination bilaterally. NOSE - Midline and without cyanosis. No epistaxis or purulent drainage noted. MOUTH/OROPHARYNX - Without perioral cyanosis. Buccal mucosa pink and moist. NECK - Neck with FROM. LUNGS - Chest wall symmetric without accessory muscle use, intercostals retractions, or central cyanosis. Normal vesicular breath sounds CTA B/L. No wheezes, rales, or rhonchi appreciated. CARDIAC - RRR with S1/S2. No murmur, rubs, or gallops appreciated. No reproducible tenderness to palpation appreciated over the anterior chest wall. ABDOMEN - Abdominal contour obese without pulsations or visible masses. BS normo active all four quadrants. No tenderness, palpable masses, hepatosplenomegaly, or ascites noted. EXTREMITIES - No clubbing or peripheral cyanosis. Moderate edema with slight erythema of the RIGHT lower extremity. +3/5 radial and dorsalis pedis pulses palpated throughout. +5/5 strength noted in UE/LE bilaterally. NEUROLOGIC - Cranial nerves II through XII grossly intact. Sensory intact to light touch throughout. PSYCH - A&Ox3 and cooperates fully with examiner. Pt is very pleasant and interacts well with examiner. Results & Data Results & Data ([facility]) Vital Signs (Past 12 Hours) Vital Signs Temp Pulse Pulse Resp BP BP Pulse Ox 03/01/22 22:00 93 H 24 148/87 H 96 03/01/22 21:42 94 H 25 H 114/62 96 03/01/22 21:31 102 H 21 154/100 H 95 03/01/22 21:30 104 H 20 94 03/01/22 21:00 99 H 26 H 129/101 H 99 05/15/22 20:53 105 H 19 95 03/01/22 19:20 105 H 93 03/01/22 18:43 36.8 C 110 H 20 140/96 94 03/01/22 18:22 37.0 C 104 H 20 147/100 H 93 Coding Level of Care Code Critical Care 1st 30-74 mins Diagnoses Admitted to intensive care unit Z78.9 Saddle embolism of pulmonary artery I26.92 Pulmonary embolism I26.02 Acute cor pulmonale presence: with acute cor pulmonale Chronicity: acute Pulmonary embolism type: saddle DVT (deep venous thrombosis) I82.409 Affected thrombotic vein of extremity: unspecified vein of extremity Chronicity: acute DVT location: lower extremity Laterality: unspecified laterality Nocturnal hypoxemia G47.34 Obesity E66.9 Severe obstructive sleep apnea G47.33 Time Spent (min) 45 (1) Pulmonary embolism Acute cor pulmonale presence: with acute cor pulmonale Chronicity: acute Pulmonary embolism type: saddle Qualified Code(s): I26.02 - Saddle embolus of pulmonary artery with acute cor pulmonale (2) DVT (deep venous thrombosis) Affected thrombotic vein of extremity: unspecified vein of extremity Chronicity: acute DVT location: lower extremity Laterality: unspecified lat erality Qualified Code(s): I82.409 - Acute embolism and thrombosis of unspecified deep veins of unspecified lower extremity
[2022-03-02] MEDS ORDERED: DEXTROSE 50% 50 ML SYRINGE IV PRN (01:00)
[2022-03-02] MEDS ORDERED: CARBOHYDRATES FOR HYPOGLYCEMIA PO PRN (01:00)
[2022-03-02] MEDS ORDERED: GLUCOSE 40% GEL 15 GM TUBE PO PRN (01:00)
[2022-03-02] MEDS ORDERED: GLUCOSE 10 TABS/TUBE PO PRN (01:00)
[2022-03-02] MEDS ORDERED: GLUCAGON FOR INJ 1 MG VIAL IM PRN (01:00)
[2022-03-02] MEDS: INSULIN GLARGINE SOLOSTAR 100 UNITS/ML 3 ML PEN SC SCH ×4 (01:24→20:18)
[2022-03-02] MEDS: INSULIN ASPART PER UNIT SC SCH ×5 (01:30→20:23)
[2022-03-02] MEDS: NICOTINE 7 MG/24 HR TDSY TD SCH (01:31)
--- NOTE | 2022-03-02 02:57 | History and Physical Report ---
DATE OF ADMISSION: 03/01/2022. CHIEF COMPLAINT: Shortness of breath, right lower extremity edema. HISTORY OF PRESENT ILLNESS: This is a 56-year-old male with past medical history significant for morbid obesity, obstructive sleep apnea, on CPAP, diabetes, currently not on any medications, history of GERD, presents with shortness of breath. The patient stating yesterday noticed swelling in his right lower extremity and for the last 2 weeks, he is having dry cough on and off and when he was taking deep breath, he is getting cough and today he started to have shortness of breath, which brought him to the ER. Currently, saturating okay. His sugars when he came in were 324. Troponin of 70.Denies chest pain, No headache, No fevers, No nausea no abdominal pain, Normal bowel and bladder movements. Says his mother blood clots about two years ago. No recent travel or surgeries. Allergies NKDA. PMH As mentioned above PSH: Colonoscopy, EGF Medications : none FH: Father had copd, cad s/p cabg, Paternal Grandfather has DM, Brother has HTN SH: Snuff tobacco, Alcohol_social drinking, Smoked marijuana in the past ROS: As per HPI. Rest of ROS negative. PE: Ge; Alert and oriented. 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 Labs: wbc 7.91,Hb 17, hematocrit 49, glucose 188, sodium 135, potassium 4.0,chloride 101, co2 21, bun 13, creatinine 0.9, glucose 324, Pt 11.5, inr 1.1, aptt 26.6 CTA chest showing preliminary report, acute saddle pulmonary embolism, bilateral lower segmental and subsegmental pulmonary emboli involving all lung lobes bilaterally. Severe clot burden, greater on the left side. Positive for right ventricular strain. Normal heart size without pericardial effusion. No thoracic aortic aneurysm or dissection, chronic granulomatous disease. No consolidation or pulmonary infarct. No pleural effusions or pneumothorax. Calcified splenic granulomas, no acute osseous findings. Venous Doppler study, right lower extremity, extensive acute DVT in the right lower extremity veins, nonocclusive thrombosis in the femoral vein, occlusive DVT in the popliteal vein, posterior tibial vein and anterior tibial vein and peroneal vein, occlusive superficial thrombophlebitis of the small saphenous vein. Chest x- ray: Mild central pulmonary vascular congestion without overt edema. EKG: Sinus tachycardia to 106, nonspecific T-wave abnormalities evident in anterior leads. ASSESSMENT AND PLAN: This is a 56-year-old male, presents with shortness of breath, found to have saddle pulmonary embolism with extensive clot burden with right heart strain and right lower extremity deep venous thrombosis. 1. Shortness of breath secondary to saddle pulmonary embolism and also clots involving bilateral lung zones and severe clot burden and right ventricular strain and also extensive right lower extremity deep venous thrombosis, started on IV heparin. Troponin was slightly elevated at 70. Follow serial cardiac enzymes, echocardiogram. Closely monitor in the ICU. Continue IV heparin for now. IF Any deterioration plan for tPA as per ICU. The patient has no recent travel, no recent surgeries. The patient states his mom had clots couple of years ago. Needs workup once stable. 2. Morbid obesity: Needs counseling. 3. Obstructive sleep apnea: CPAP at bedtime. 4. Diabetes: Currently not on any medication. The patient says this is controlled with diet. His sugars were [address] him on Lantus 6 units b.i.d., insulin sliding scale. Follow HbA1c level. Follow the blood sugars and adjust the insulin. When stable, may need diabetic teaching and close followup. 5. Deep venous thrombosis prophylaxis: On IV heparin. DISPOSITION: Closely monitor in the ICU. Level 1 full code. Job ID: [id number] [facility]
[2022-03-02 04:57] LABS: BUN Creatinine Ratio 12.4 (10-20); Calcium 8.4 mg/dl (8.5-10.1); Est GFR (African American) 110.8 ml/min; Est GFR (Non-African American) 95.6 ml/min; Magnesium 1.9 mg/dl (1.7-2.4); Phosphorus 2.6 mg/dl (2.5-4.9); Potassium 3.4 mmol/L (3.5-5.1)
[2022-03-02 04:58] LABS: Troponin I High Sensitivity 88.7 pg/ml (0-20)
[2022-03-02 05:02] LABS: Partial Thromboplastin Ratio 1.9
[2022-03-02 05:07] LABS: Basophils # (auto) 0.04 K/uL (0-0.2); Basophils % (auto) 0.5 %; Eosinophils # (auto) 0.19 K/uL (0-0.5); Eosinophils % (auto) 2.4 %; Hematocrit (blood only) 43.6 % (42-52); Immature Granulocytes # (auto) 0.07 K/uL (0.00-0.02); Immature Granulocytes % (auto) 0.9 %; Lymphocytes # (auto) 2.42 K/uL (1.2-3.4); Lymphocytes % (auto) 30.1 %; Mean Corpuscular Hemoglobin 31.3 pg (25-34); Mean Corpuscular Hgb Conc 34.4 g/dL (32-36); Mean Corpuscular Volume 90.8 fL (80-100); Monocytes # (auto) 0.82 K/uL (0.11-0.59); Monocytes % (auto) 10.2 %; Neutrophils # (auto) 4.49 K/uL (1.4-6.5); Neutrophils % (auto) 55.9 %; Platelet Count 182 K/uL (130-400); RDW Coefficient of Variation 13.3 % (11.5-14.5); RDW Standard Deviation 43.9 fL (36.4-46.3); White Blood Count 8.03 K/uL (4.8-10.8)
--- NOTE | 2022-03-02 06:47 | Ultrasound Report ---
US venous doppler LE RT HISTORY: 56 years-old Male ro dvt acute pain and swelling of the right lower extremity COMPARISON: None TECHNIQUE: Multiple real-time sonographic images of the right lower extremity deep venous structures were obtained assessing grayscale appearance, color and spectral flow. FINDINGS: Extensive deep venous thrombus of the right lower extremity includes nonocclusive thrombus of the sup erficial femoral vein without occlusive thrombus in the popliteal, posterior tibial, peroneal and ant erior tibial veins. Occlusive superficial venous thrombus is also noted within the lesser saphenous v ein which appears to extend into the popliteal confluence. IMPRESSION: Likely acute occlusive deep and superficial venous thrombi of the right lower extremity. ACT 112: Negative or not required by law. The above report was generated using voice recognition software. It may contain grammatical, syntax o r spelling errors. Electronically signed by: Kennedy Gonzalez M.D. 03/02/2022 6:45 AM
[2022-03-02 07:48] LABS: Estimated Average Glucose 326 mg/dl
--- NOTE | 2022-03-02 07:53 | CT Scan Report ---
CT angio chest PE protocol CT DOSE: 839.51 mGy.cm HISTORY: 56 years-old Male with ro PE. Acute shortness of breath TECHNIQUE: Multiple CTA images of the chest were obtained after the intravenous administration of 120 ml Optiray. Coronal and sagittal MIPS were obtained from the axial data set and were submitted for review. All measurements were obtained according to NASCET criteria. A dose lowering technique was u tilized adhering to the principles of ALARA. COMPARISON: Chest radiograph of same day FINDINGS: CTA: There is dilation of the right ventricle with straightening of the intraventricular septum. Moderate coronary artery calcifications. Unremarkable thoracic aorta. Acute appearing sagittal pulmonary embol us with extensive pulmonary emboli involving the right left main pulmonary arterial branches extendin g into the lobar, segmental and subsegmental branches bilaterally. CT CHEST: No thyroid nodule or pathologically enlarged lymph nodes. Calcified subcarinal lymph nodes are presen t. No pneumothorax, pleural effusion, airspace consolidation or overt pulmonary edema. The inferior r ight lung base is only partially imaged. 3 mm solid nodule of the superior segment right lower lobe, image 163. The central airways are patent. Calcified granulomata of the spleen. Hepatomegaly with hepatic steatosis. Unremarkable soft tissues. Degenerative changes of the shoulders and spine. IMPRESSION: Extensive pulmonary emboli include a saddle pulmonary embolus with main, lobar, segmental and subsegm ental bilateral pulmonary emboli and evidence of associated right heart strain. ACT 112: Negative or not required by law. The above report was generated using voice recognition software. It may contain grammatical, syntax o r spelling errors. Electronically signed by: Kennedy Gonzalez M.D. 03/02/2022 7:51 AM
[2022-03-02] MEDS: ICU ELECTROLYTE REPLACEMENT PROTOCOL SCH ×2 (11:44→18:38)
[2022-03-02] MEDS: HEPARIN SODIUM/DEXTROSE 25,000 UNITS/500 ML BAG IV SCH (12:12)
[2022-03-02] MEDS: MAGNESIUM OXIDE 400 MG TAB PO SCH ×2 (12:53→17:54)
[2022-03-02] MEDS: POTASSIUM CHLORIDE CRTAB 20 MEQ TABCR PO SCH ×2 (12:53→17:54)
--- NOTE | 2022-03-02 12:59 | Electrocardiogram Report ---
Test Reason : Blood Pressure : / mmHG Vent. Rate : 106 BPM Atrial Rate : 106 BPM P-R Int : 188 ms QRS Dur : 082 ms QT Int : 344 ms P-R-T Axes : 074 054 021 degrees QTc Int : 456 ms Poor data quality, interpretation may be adversely affected Sinus tachycardia Low voltage QRS Borderline ECG When compared with ECG of 14-MAY-2016 14:08, Nonspecific T wave abnormality now evident in Anterior leads Confirmed by Chandler Hammond ([id number]) on 03/02/2022 12:58:53 PM Referred By: REFERRED SELF Confirmed By:Uzair Hammond
[2022-03-02] MEDS ORDERED: ALTEPLASE IV STA ×3 (14:13→14:29)
[2022-03-02] MEDS ORDERED: SODIUM CHLORIDE 0.9% IV STA ×3 (14:13→14:29)
[2022-03-02] MEDS ORDERED: RECOMBINANT IV STA ×3 (14:13→14:29)
--- NOTE | 2022-03-02 14:15 | Communication Note ---
Date of Service: March 02, 2022 I discussed echo cardiology findings with cardiology and the patient. Briefly he is a poorly controlled diabetic with an A1c greater than 13, history of hyp ertension, obstructive sleep apnea who has significant heart strain on echocardiography with elevated troponins. We discussed risks and benefits of systemic thrombolysis, at this point he is willing to proceed with systemic thrombolysis, I believe half dose will decrease risks of bleeding. He has also been consented for blood transfusion should he require it. He is still significantly symptomatic with minimal exertion. Patient's right lower extremity also significantly larger than left, at risk for post thrombotic syndrome At this time we will proceed with half dose: 50 mg tPA: 10 mg given as an IV bolus and then the remainder over 2-hour period. Heparin will restart after PTT is twice the upper limit I have personally spent 40 minutes of critical care time in the direct management of this patient. This is a life/limb threatening event. This includes time spent evaluating patient, direct bedside care, chart review, placing orders, interpretation of diagnostic studies, discussion with consultants, patient, and/or family members regarding treatment decisions, as well as other required patient management activities. This time is exclusive of all separately billable procedures, and teaching time and separate from and in addition to any other critical care service time. Coding Level of Care Code Critical Care areli addt'l 30 min
[2022-03-02 15:09] LABS: Fibrinogen 378 mg/dl (184-400); Partial Thromboplastin Ratio 1.4
[2022-03-02] MEDS ORDERED: 0.9 % SODIUM CHLORIDE 100 ML IV ONE (16:30)
[2022-03-02] MEDS: Heparin IV Adult Wt-Based Low-Dose *NO* Bolus Protocol IV SCH ×2 (17:34→17:35)
[2022-03-02 18:22] LABS: Partial Thromboplastin Ratio 1.3; Partial Thromboplastin Time 35.9 Seconds (21.0-31.0)
[2022-03-02] MEDS ORDERED: HEPARIN SODIUM/DEXTROSE 25,000 UNITS/500 ML BAG IV SCH (19:15)
--- NOTE | 2022-03-02 19:20 | Hospitalist Progress Note ---
Date of Service March 02, 2022 Assessment & Plan (1) Saddle embolism of pulmonary artery: (2) DVT (deep venous thrombosis): (3) Severe obstructive sleep apnea: Plan: 56-year-old male, presents with shortness of breath, found to have saddle pulmonary embolism with extensive clot burden with right heart strain and right lower extremity deep venous thrombosis. 1. Shortness of breath secondary to saddle pulmonary embolism and also clots involving bilateral lung zones and severe clot burden and right ventricular strain and also extensive right lower extremity deep venous thrombosis, started on IV heparin. Troponin was slightly elevated at 70. Follow serial cardiac enzymes, echocardiogram. Closely monitor in the ICU. Continue IV heparin for now. IF Any deterioration plan for tPA as per ICU. The patient has no recent travel, no recent surgeries. The patient states his mom had clots couple of years ago. Needs workup once stable. Echo -normal LV chamber size with D-shaped septum. Normal LV systolic function, EF 60-65%. No segmental LV wall motion abnormalities are noted. RV cavity size is enlarged -proximal parasternal long axis and right ventricular outflow tract dimension greater than 3.3 cm. RV systolic function is reduced as assessed by tricuspid annular plane systolic excursion TAPSE less than 1.6 cm. Akinesis of the RV free wall with preserved apical wall motion (Seo's sign). Aortic valve sclerosis mild, without significant aortic valvular stenosis. No significant valvular pathology. Inadequate TR jet to calculate PASP. IVC not visualized. Above findings consistent with significant RV strain. 03/02 - Pt now receiving tPA , closely monitor in ICU 2. Morbid obesity: Needs counseling. 3. Obstructive sleep apnea: CPAP at bedtime. 4. Diabetes: Currently not on any medication. The patient says this is controlled with diet. His sugars were [address] him on Lantus 6 units b.i.d., insulin sliding scale. Follow HbA1c level. Follow the blood sugars and adjust the insulin. When stable, may need diabetic teaching and close followup. DVT prophylaxis: On IV heparin. and now receiving tPA DISPOSITION:ICU. Code: Full code. Admission and Anticipated Discharge Date Admission Date: March 01, 2022 Subjective Pt seen in follow-up of saddle PE, right lower extremity DVT Currently patient is lying in bed, in ICU Family is present at the bedside just receiving tPA Currently denies any chest pain, says that it if he is resting he does not have increased shortness of breath, he is on 2L O2 No fevers, chills, abdominal pain, nausea vomiting Review of Systems Review of Systems: All systems reviewed & are unremarkable except as noted in Subjective Physical Exam Physical Exam: Ge; Alert and oriented.obese M Not in acute distress HEENT: NC/AT. EOMI. Pupils ISMAEL, atraumatic, no facial droop, Speech clear. 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 Speech fluent, no facial asymmetry, moves extremities. Ext: Right lower extremity is swollen and mildly erythematous. Results & Data Results & Data ([facility]) Vital Signs (Past 12 Hours) Vital Signs Temp Pulse Resp BP Pulse Ox 03/02/22 18:28 91 H 03/02/22 18:15 94 H 19 94 03/02/22 18:01 100 H 33 H 123/77 90 03/02/22 18:00 96 H 23 90 03/02/22 17:45 96 H 22 121/75 91 03/02/22 17:30 99 H 23 110/79 91 03/02/22 17:15 98 H 25 H 111/81 93 03/02/22 17:00 97 H 15 92 03/02/22 16:50 98 H 32 H 97/77 L 91 03/02/22 16:45 97 H 19 135/77 92 03/02/22 16:41 100 H 24 108/81 90 03/02/22 16:35 93 H 18 118/77 93 03/02/22 16:30 91 H 24 108/80 94 03/02/22 16:25 92 H 17 115/83 93 03/02/22 16:20 90 26 H 117/80 93 03/02/22 16:15 87 25 H 110/83 92 03/02/22 16:10 91 H 22 108/75 93 03/02/22 16:05 100 H 19 120/81 93 03/02/22 16:00 36.9 C 91 H 23 121/75 93 03/02/22 15:55 93 H 22 117/71 93 03/02/22 15:50 93 H 25 H 111/71 94 03/02/22 15:45 90 19 102/73 94 03/02/22 15:40 90 23 126/77 93 03/02/22 15:35 97 H 16 107/66 93 03/02/22 15:30 93 H 18 118/70 94 03/02/22 15:25 94 H 21 97/74 L 94 03/02/22 15:20 91 H 23 117/70 91 03/02/22 15:15 91 H 26 H 95 03/02/22 15:01 94 H 27 H 117/82 94 03/02/22 15:00 95 H 27 H 93 03/02/22 14:45 99 H 26 H 94 03/02/22 14:30 101 H 24 95 03/02/22 14:15 97 H 26 H 94 03/02/22 14:01 98 H 21 147/88 H 92 03/02/22 14:00 96 H 26 H 94 03/02/22 13:45 99 H 26 H 94 03/02/22 13:30 100 H 19 95 03/02/22 13:15 96 H 19 94 03/02/22 13:01 96 H 29 H 124/77 90 03/02/22 13:00 100 H 27 H 93 03/02/22 12:45 96 H 17 93 03/02/22 12:30 98 H 23 88 L 03/02/22 12:15 100 H 21 92 03/02/22 12:00 90 23 117/88 92 03/02/22 11:00 95 H 21 126/84 93 03/02/22 10:01 95 H 27 H 112/79 90 03/02/22 10:00 96 H 25 H 90 03/02/22 09:00 95 H 24 129/88 89 L 03/02/22 08:00 36.6 C 92 H 27 H 121/98 92 Laboratory Results 03/02/22 03/02/22 03/02/22 Range/Units 18:06 18:06 14:42 WBC (4.8-10.8) K/uL RBC (4.7-6.1) M/uL Hgb (14.0-18.0) g/dL Hct (42-52) % MCV (80-100) fL MCH (25-34) pg MCHC (32-36) g/dL RDW Std Deviation (36.4-46.3) fL RDW Coeff of Deepak (11.5-14.5) % Plt Count (130-400) K/uL MPV (7.4-10.4) fL Immature Gran % (Auto) % Neut % (Auto) % Lymph % (Auto) % [place] % (Auto) % Eos % (Auto) % Baso % (Auto) % Neut # (Auto) (1.4-6.5) K/uL Lymph # (Auto) (1.2-3.4) K/uL [place] # (Auto) (0.11-0.59) K/uL Eos # (Auto) (0-0.5) K/uL Baso # (Auto) (0-0.2) K/uL Immature Gran # (Auto) (0.00-0.02) K/uL PT (9.0-12.0) Seconds INR (0.9-1.1) APTT 35.9 H (21.0-31.0) Seconds PTT Ratio 1.3 Fibrinogen (184-400) mg/dl Sodium (136-145) mmol/L Potassium (3.5-5.1) mmol/L Chloride (98-107) mmol/L Carbon Dioxide (21-32) mmol/L Anion Gap (3-11) BUN (6-23) mg/dl Creatinine (0.6-1.4) mg/dl Est Cr Clr Drug Dosing ml/min Est GFR ( Amer) ml/min Est GFR (Non-Af Amer) ml/min BUN/Creatinine Ratio (10-20) Glucose (70-99(Fasting)) mg/dl POC Glucose (70-99) mg/dl Estimat Average Glucose mg/dl Hemoglobin A1c (4.5-5.6) % Lactate (0.4-2.0) mmol/L Calcium (8.5-10.1) mg/dl Phosphorus (2.5-4.9) mg/dl Magnesium (1.7-2.4) mg/dl Total Bilirubin (0.2-1.0) mg/dl Direct Bilirubin (0-0.2) mg/dl AST (13-39) U/L ALT (7-52) U/L Alkaline Phosphatase (34-104) U/L Troponin I High Sens 32.2 H (0-20) pg/ml B-Natriuretic Peptide (0-100) pg/ml Total Protein (6.0-8.3) gm/dl Albumin (3.4-5.0) gm/dl Lipase (11-82) U/L Nasal Screen MRSA (PCR) (Negative) SARS-CoV-2, RNA, NAAT (NEGATIVE) Blood Type O Positive Antibody Screen NEGATIVE 03/02/22 03/02/22 03/02/22 Range/Units 14:42 11:37 11:02 WBC (4.8-10.8) K/uL RBC (4.7-6.1) M/uL Hgb (14.0-18.0) g/dL Hct (42-52) % MCV (80-100) fL MCH (25-34) pg MCHC (32-36) g/dL RDW Std Deviation (36.4-46.3) fL RDW Coeff of Deepak (11.5-14.5) % Plt Count (130-400) K/uL MPV (7.4-10.4) fL Immature Gran % (Auto) % Neut % (Auto) % Lymph % (Auto) % [place] % (Auto) % Eos % (Auto) % Baso % (Auto) % Neut # (Auto) (1.4-6.5) K/uL Lymph # (Auto) (1.2-3.4) K/uL [place] # (Auto) (0.11-0.59) K/uL Eos # (Auto) (0-0.5) K/uL Baso # (Auto) (0-0.2) K/uL Immature Gran # (Auto) (0.00-0.02) K/uL PT (9.0-12.0) Seconds INR (0.9-1.1) APTT 38.0 H (21.0-31.0) Seconds PTT Ratio 1.4 Fibrinogen 378 (184-400) mg/dl Sodium (136-145) mmol/L Potassium (3.5-5.1) mmol/L Chloride (98-107) mmol/L Carbon Dioxide (21-32) mmol/L Anion Gap (3-11) BUN (6-23) mg/dl Creatinine (0.6-1.4) mg/dl Est Cr Clr Drug Dosing ml/min Est GFR ( Amer) ml/min Est GFR (Non-Af Amer) ml/min BUN/Creatinine Ratio (10-20) Glucose (70-99(Fasting)) mg/dl POC Glucose 318 H* (70-99) mg/dl Estimat Average Glucose mg/dl Hemoglobin A1c (4.5-5.6) % Lactate (0.4-2.0) mmol/L Calcium (8.5-10.1) mg/dl Phosphorus (2.5-4.9) mg/dl Magnesium (1.7-2.4) mg/dl Total Bilirubin (0.2-1.0) mg/dl Direct Bilirubin (0-0.2) mg/dl AST (13-39) U/L ALT (7-52) U/L Alkaline Phosphatase (34-104) U/L Troponin I High Sens 41.5 H D (0-20) pg/ml B-Natriuretic Peptide (0-100) pg/ml Total Protein (6.0-8.3) gm/dl Albumin (3.4-5.0) gm/dl Lipase (11-82) U/L Nasal Screen MRSA (PCR) (Negative) SARS-CoV-2, RNA, NAAT (NEGATIVE) Blood Type Antibody Screen 03/02/22 03/02/22 03/02/22 Range/Units 07:25 04:20 04:20 WBC 8.03 (4.8-10.8) K/uL RBC 4.80 (4.7-6.1) M/uL Hgb 15.0 (14.0-18.0) g/dL Hct 43.6 (42-52) % MCV 90.8 (80-100) fL MCH 31.3 (25-34) pg MCHC 34.4 (32-36) g/dL RDW Std Deviation 43.9 (36.4-46.3) fL RDW Coeff of Deepak 13.3 (11.5-14.5) % Plt Count 182 (130-400) K/uL MPV 10.0 (7.4-10.4) fL Immature Gran % (Auto) 0.9 % Neut % (Auto) 55.9 % Lymph % (Auto) 30.1 % [place] % (Auto) 10.2 % Eos % (Auto) 2.4 % Baso % (Auto) 0.5 % Neut # (Auto) 4.49 (1.4-6.5) K/uL Lymph # (Auto) 2.42 (1.2-3.4) K/uL [place] # (Auto) 0.82 H (0.11-0.59) K/uL Eos # (Auto) 0.19 (0-0.5) K/uL Baso # (Auto) 0.04 (0-0.2) K/uL Immature Gran # (Auto) 0.07 H (0.00-0.02) K/uL PT (9.0-12.0) Seconds INR (0.9-1.1) APTT (21.0-31.0) Seconds PTT Ratio Fibrinogen (184-400) mg/dl Sodium (136-145) mmol/L Potassium (3.5-5.1) mmol/L Chloride (98-107) mmol/L Carbon Dioxide (21-32) mmol/L Anion Gap (3-11) BUN (6-23) mg/dl Creatinine (0.6-1.4) mg/dl Est Cr Clr Drug Dosing ml/min Est GFR ( Amer) ml/min Est GFR (Non-Af Amer) ml/min BUN/Creatinine Ratio (10-20) Glucose (70-99(Fasting)) mg/dl POC Glucose 280 H (70-99) mg/dl Estimat Average Glucose 326 mg/dl Hemoglobin A1c 13.0 H (4.5-5.6) % Lactate (0.4-2.0) mmol/L Calcium (8.5-10.1) mg/dl Phosphorus (2.5-4.9) mg/dl Magnesium (1.7-2.4) mg/dl Total Bilirubin (0.2-1.0) mg/dl Direct Bilirubin (0-0.2) mg/dl AST (13-39) U/L ALT (7-52) U/L Alkaline Phosphatase (34-104) U/L Troponin I High Sens (0-20) pg/ml B-Natriuretic Peptide (0-100) pg/ml Total Protein (6.0-8.3) gm/dl Albumin (3.4-5.0) gm/dl Lipase (11-82) U/L Nasal Screen MRSA (PCR) (Negative) SARS-CoV-2, RNA, NAAT (NEGATIVE) Blood Type Antibody Screen 03/02/22 03/02/22 03/02/22 Range/Units 04:20 04:20 01:07 WBC (4.8-10.8) K/uL RBC (4.7-6.1) M/uL Hgb (14.0-18.0) g/dL Hct (42-52) % MCV (80-100) fL MCH (25-34) pg MCHC (32-36) g/dL RDW Std Deviation (36.4-46.3) fL RDW Coeff of Deepak (11.5-14.5) % Plt Count (130-400) K/uL MPV (7.4-10.4) fL Immature Gran % (Auto) % Neut % (Auto) % Lymph % (Auto) % [place] % (Auto) % Eos % (Auto) % Baso % (Auto) % Neut # (Auto) (1.4-6.5) K/uL Lymph # (Auto) (1.2-3.4) K/uL [place] # (Auto) (0.11-0.59) K/uL Eos # (Auto) (0-0.5) K/uL Baso # (Auto) (0-0.2) K/uL Immature Gran # (Auto) (0.00-0.02) K/uL PT (9.0-12.0) Seconds INR (0.9-1.1) APTT 51.0 H* (21.0-31.0) Seconds PTT Ratio 1.9 Fibrinogen (184-400) mg/dl Sodium 136 (136-145) mmol/L Potassium 3.4 L (3.5-5.1) mmol/L Chloride 104 (98-107) mmol/L Carbon Dioxide 22 (21-32) mmol/L Anion Gap 10 (3-11) BUN 11 (6-23) mg/dl Creatinine 0.89 (0.6-1.4) mg/dl Est Cr Clr Drug Dosing 132.0 ml/min Est GFR ( Amer) 110.8 ml/min Est GFR (Non-Af Amer) 95.6 ml/min BUN/Creatinine Ratio 12.4 (10-20) Glucose 274 H (70-99(Fasting)) mg/dl POC Glucose 290 H (70-99) mg/dl Estimat Average Glucose mg/dl Hemoglobin A1c (4.5-5.6) % Lactate (0.4-2.0) mmol/L Calcium 8.4 L (8.5-10.1) mg/dl Phosphorus 2.6 (2.5-4.9) mg/dl Magnesium 1.9 (1.7-2.4) mg/dl Total Bilirubin (0.2-1.0) mg/dl Direct Bilirubin (0-0.2) mg/dl AST (13-39) U/L ALT (7-52) U/L Alkaline Phosphatase (34-104) U/L Troponin I High Sens 88.7 H* D (0-20) pg/ml B-Natriuretic Peptide (0-100) pg/ml Total Protein (6.0-8.3) gm/dl Albumin (3.4-5.0) gm/dl Lipase (11-82) U/L Nasal Screen MRSA (PCR) (Negative) SARS-CoV-2, RNA, NAAT (NEGATIVE) Blood Type Antibody Screen 03/02/22 03/01/22 03/01/22 Range/Units 00:32 22:41 22:37 WBC (4.8-10.8) K/uL RBC (4.7-6.1) M/uL Hgb (14.0-18.0) g/dL Hct (42-52) % MCV (80-100) fL MCH (25-34) pg MCHC (32-36) g/dL RDW Std Deviation (36.4-46.3) fL RDW Coeff of Deepak (11.5-14.5) % Plt Count (130-400) K/uL MPV (7.4-10.4) fL Immature Gran % (Auto) % Neut % (Auto) % Lymph % (Auto) % [place] % (Auto) % Eos % (Auto) % Baso % (Auto) % Neut # (Auto) (1.4-6.5) K/uL Lymph # (Auto) (1.2-3.4) K/uL [place] # (Auto) (0.11-0.59) K/uL Eos # (Auto) (0-0.5) K/uL Baso # (Auto) (0-0.2) K/uL Immature Gran # (Auto) (0.00-0.02) K/uL PT (9.0-12.0) Seconds INR (0.9-1.1) APTT (21.0-31.0) Seconds PTT Ratio Fibrinogen (184-400) mg/dl Sodium (136-145) mmol/L Potassium (3.5-5.1) mmol/L Chloride (98-107) mmol/L Carbon Dioxide (21-32) mmol/L Anion Gap (3-11) BUN (6-23) mg/dl Creatinine (0.6-1.4) mg/dl Est Cr Clr Drug Dosing ml/min Est GFR ( Amer) ml/min Est GFR (Non-Af Amer) ml/min BUN/Creatinine Ratio (10-20) Glucose (70-99(Fasting)) mg/dl POC Glucose (70-99) mg/dl Estimat Average Glucose mg/dl Hemoglobin A1c (4.5-5.6) % Lactate (0.4-2.0) mmol/L Calcium (8.5-10.1) mg/dl Phosphorus (2.5-4.9) mg/dl Magnesium (1.7-2.4) mg/dl Total Bilirubin (0.2-1.0) mg/dl Direct Bilirubin (0-0.2) mg/dl AST (13-39) U/L ALT (7-52) U/L Alkaline Phosphatase (34-104) U/L Troponin I High Sens (0-20) pg/ml B-Natriuretic Peptide 34 (0-100) pg/ml Total Protein (6.0-8.3) gm/dl Albumin (3.4-5.0) gm/dl Lipase (11-82) U/L Nasal Screen MRSA (PCR) Negative (Negative) SARS-CoV-2, RNA, NAAT NEGATIVE (NEGATIVE) Blood Type Antibody Screen 03/01/22 03/01/22 03/01/22 Range/Units 22:11 19:15 19:15 WBC (4.8-10.8) K/uL RBC (4.7-6.1) M/uL Hgb (14.0-18.0) g/dL Hct (42-52) % MCV (80-100) fL MCH (25-34) pg MCHC (32-36) g/dL RDW Std Deviation (36.4-46.3) fL RDW Coeff of Deepak (11.5-14.5) % Plt Count (130-400) K/uL MPV (7.4-10.4) fL Immature Gran % (Auto) % Neut % (Auto) % Lymph % (Auto) % [place] % (Auto) % Eos % (Auto) % Baso % (Auto) % Neut # (Auto) (1.4-6.5) K/uL Lymph # (Auto) (1.2-3.4) K/uL [place] # (Auto) (0.11-0.59) K/uL Eos # (Auto) (0-0.5) K/uL Baso # (Auto) (0-0.2) K/uL Immature Gran # (Auto) (0.00-0.02) K/uL PT (9.0-12.0) Seconds INR (0.9-1.1) APTT (21.0-31.0) Seconds PTT Ratio Fibrinogen (184-400) mg/dl Sodium 135 L (136-145) mmol/L Potassium 4.0 (3.5-5.1) mmol/L Chloride 101 (98-107) mmol/L Carbon Dioxide 21 (21-32) mmol/L Anion Gap 13 H (3-11) BUN 13 (6-23) mg/dl Creatinine 0.95 (0.6-1.4) mg/dl Est Cr Clr Drug Dosing 123.6 ml/min Est GFR ( Amer) 103.3 ml/min Est GFR (Non-Af Amer) 89.1 ml/min BUN/Creatinine Ratio 13.7 (10-20) Glucose 324 H* (70-99(Fasting)) mg/dl POC Glucose (70-99) mg/dl Estimat Average Glucose mg/dl Hemoglobin A1c (4.5-5.6) % Lactate 1.4 (0.4-2.0) mmol/L Calcium 9.2 (8.5-10.1) mg/dl Phosphorus (2.5-4.9) mg/dl Magnesium (1.7-2.4) mg/dl Total Bilirubin 1.1 H (0.2-1.0) mg/dl Direct Bilirubin 0.2 (0-0.2) mg/dl AST 52 H (13-39) U/L ALT 49 (7-52) U/L Alkaline Phosphatase 74 (34-104) U/L Troponin I High Sens 70.7 H* (0-20) pg/ml B-Natriuretic Peptide (0-100) pg/ml Total Protein 7.1 (6.0-8.3) gm/dl Albumin 3.9 (3.4-5.0) gm/dl Lipase 19 (11-82) U/L Nasal Screen MRSA (PCR) (Negative) SARS-CoV-2, RNA, NAAT (NEGATIVE) Blood Type Antibody Screen 03/01/22 03/01/22 Range/Units 19:15 19:15 WBC 7.91 (4.8-10.8) K/uL RBC 5.40 (4.7-6.1) M/uL Hgb 17.0 (14.0-18.0) g/dL Hct 49.0 (42-52) % MCV 90.7 (80-100) fL MCH 31.5 (25-34) pg MCHC 34.7 (32-36) g/dL RDW Std Deviation 43.5 (36.4-46.3) fL RDW Coeff of Deepak 13.1 (11.5-14.5) % Plt Count 188 (130-400) K/uL MPV 10.2 (7.4-10.4) fL Immature Gran % (Auto) 0.6 % Neut % (Auto) 70.2 % Lymph % (Auto) 16.8 % [place] % (Auto) 10.6 % Eos % (Auto) 1.4 % Baso % (Auto) 0.4 % Neut # (Auto) 5.55 (1.4-6.5) K/uL Lymph # (Auto) 1.33 (1.2-3.4) K/uL [place] # (Auto) 0.84 H (0.11-0.59) K/uL Eos # (Auto) 0.11 (0-0.5) K/uL Baso # (Auto) 0.03 (0-0.2) K/uL Immature Gran # (Auto) 0.05 H (0.00-0.02) K/uL PT 11.5 (9.0-12.0) Seconds INR 1.1 (0.9-1.1) APTT 26.6 (21.0-31.0) Seconds PTT Ratio 1.0 Fibrinogen (184-400) mg/dl Sodium (136-145) mmol/L Potassium (3.5-5.1) mmol/L Chloride (98-107) mmol/L Carbon Dioxide (21-32) mmol/L Anion Gap (3-11) BUN (6-23) mg/dl Creatinine (0.6-1.4) mg/dl Est Cr Clr Drug Dosing ml/min Est GFR ( Amer) ml/min Est GFR (Non-Af Amer) ml/min BUN/Creatinine Ratio (10-20) Glucose (70-99(Fasting)) mg/dl POC Glucose (70-99) mg/dl Estimat Average Glucose mg/dl Hemoglobin A1c (4.5-5.6) % Lactate (0.4-2.0) mmol/L Calcium (8.5-10.1) mg/dl Phosphorus (2.5-4.9) mg/dl Magnesium (1.7-2.4) mg/dl Total Bilirubin (0.2-1.0) mg/dl Direct Bilirubin (0-0.2) mg/dl AST (13-39) U/L ALT (7-52) U/L Alkaline Phosphatase (34-104) U/L Troponin I High Sens (0-20) pg/ml B-Natriuretic Peptide (0-100) pg/ml Total Protein (6.0-8.3) gm/dl Albumin (3.4-5.0) gm/dl Lipase (11-82) U/L Nasal Screen MRSA (PCR) (Negative) SARS-CoV-2, RNA, NAAT (NEGATIVE) Blood Type Antibody Screen Medications Administered Current Inpatient Medications Dextrose (Dextrose 50% 50 Ml Syringe) 25 - 50 ml IV UD PRN; Protocol PRN Reason: Hypoglycemia Protocol Stop: 04/01/22 00:59 Glucagon (Glucagon For Inj 1 Mg Vial) 1 mg IM UD PRN; Protocol PRN Reason: Hypoglycemia Protocol Stop: 04/01/22 00:59 Glucose (Glucose 40% Gel 15 Gm Tube) 15 - 30 gm PO UD PRN; Protocol PRN Reason: Hypoglycemia Protocol Stop: 04/01/22 00:59 Glucose (Glucose 10 Tabs/Tube) 4 - 8 tabs PO UD PRN; Protocol PRN Reason: Hypoglycemia Protocol Stop: 04/01/22 00:59 Heparin Sodium/Dextrose (Heparin Sodium/Dextrose) 25,000 units in 500 mls @ 20 mls/hr IV .Q24H ANALI; Protocol Stop: 04/01/22 19:14 Insulin Aspart (Insulin Aspart Per Unit) 0 units SC ACHS [facility] Stop: 04/01/22 00:44 Last Admin: 03/02/22 18:50 Dose: Not Given Documented by: Insulin Glargine (Insulin Glargine Solostar 100 Units/Ml 3 Ml Pen) 15 units SC BID [facility] Stop: 04/01/22 10:14 Last Admin: 03/02/22 11:56 Dose: 15 units Documented by: Miscellaneous (I[facility] Protocol For Hyperglycemia) 1 ea N/A PRN PRN; Protocol PRN Reason: Hyperglycemia Protocol Stop: 03/04/22 00:27 Miscellaneous (Remove Nicoderm Patch) 1 ea N/A DAILY@0859 [facility] Stop: 04/01/22 08:58 Last Admin: 03/02/22 11:42 Dose: 1 ea Documented by: Miscellaneous (Carbohydrates For Hypoglycemia ) 15 - 30 gm PO UD PRN PRN Reason: Hypoglycemia Treatment Stop: 04/01/22 00:59 Miscellaneous ([facility] Electrolyte Replacement Protocol) 1 ea N/A BID@06,18 [facility]; Protocol Stop: 03/09/22 10:10 Last Admin: 03/02/22 18:38 Dose: Not Given Documented by: Nicotine (Nicotine 7 Mg/24 Hr Tdsy) 7 mg TD QAM [facility] Stop: 04/01/22 08:59 Last Admin: 03/02/22 01:31 Dose: 7 mg Documented by: (1) DVT (deep venous thrombosis) Affected thrombotic vein of extremity: unspecified vein of extremity Chronicity: acute DVT location: lower extremity Laterality: unspecified laterality Qualified Code(s): I82.409 - Acute embolism and thrombosis of unspecified deep veins of unspecified lower extremity
[2022-03-02 21:24] LABS: Partial Thromboplastin Ratio 1.2; Partial Thromboplastin Time 32.5 Seconds (21.0-31.0)
[2022-03-02 21:45] LABS: Fibrinogen 170 mg/dl (184-400)
[2022-03-03 02:07] LABS: Fibrinogen 155 mg/dl (184-400); Partial Thromboplastin Ratio 1.1
[2022-03-03] MEDS ORDERED: HEPARIN SOD (PORCINE) 1000 UNIT/ML IV ONE ×2 (02:30→09:45)
[2022-03-03] MEDS: NICOTINE 7 MG/24 HR TDSY TD SCH (07:30)
[2022-03-03] MEDS: INSULIN GLARGINE SOLOSTAR 100 UNITS/ML 3 ML PEN SC SCH ×2 (07:32→21:03)
[2022-03-03] MEDS: INSULIN ASPART PER UNIT SC SCH ×4 (07:36→21:03)
[2022-03-03 08:57] LABS: Basophils # (auto) 0.03 K/uL (0-0.2); Basophils % (auto) 0.4 %; Eosinophils # (auto) 0.16 K/uL (0-0.5); Eosinophils % (auto) 2.3 %; Hematocrit (blood only) 45.7 % (42-52); Hemoglobin 15.5 g/dL (14.0-18.0); Immature Granulocytes # (auto) 0.08 K/uL (0.00-0.02); Immature Granulocytes % (auto) 1.1 %; Lymphocytes # (auto) 1.58 K/uL (1.2-3.4); Lymphocytes % (auto) 22.3 %; Mean Corpuscular Hemoglobin 30.4 pg (25-34); Mean Corpuscular Hgb Conc 33.9 g/dL (32-36); Mean Corpuscular Volume 89.6 fL (80-100); Mean Platelet Volume 9.6 fL (7.4-10.4); Monocytes # (auto) 0.81 K/uL (0.11-0.59); Monocytes % (auto) 11.4 %; Neutrophils # (auto) 4.44 K/uL (1.4-6.5); Neutrophils % (auto) 62.5 %; Platelet Count 166 K/uL (130-400); RDW Coefficient of Variation 13.5 % (11.5-14.5); RDW Standard Deviation 44.3 fL (36.4-46.3)
[2022-03-03 09:17] LABS: BUN Creatinine Ratio 10.3 (10-20); Calcium 8.8 mg/dl (8.5-10.1); Est GFR (African American) 100.7 ml/min; Est GFR (Non-African American) 86.9 ml/min; Magnesium 1.8 mg/dl (1.7-2.4); Phosphorus 1.9 mg/dl (2.5-4.9); Potassium 3.8 mmol/L (3.5-5.1)
[2022-03-03 09:18] LABS: Fibrinogen 215 mg/dl (184-400); Partial Thromboplastin Ratio 1.3; Partial Thromboplastin Time 34.5 Seconds (21.0-31.0)
[2022-03-03] MEDS ORDERED: SODIUM PHOSPHATE 3 MMOL/1 ML 5 ML VIAL IV ONE (09:42)
[2022-03-03] MEDS: ICU ELECTROLYTE REPLACEMENT PROTOCOL SCH (09:43)
[2022-03-03] MEDS ORDERED: SODIUM PHOSPHATE 12 MMOL in DEXTROSE 5% 250 ML IV ONE (10:00)
--- NOTE | 2022-03-03 10:09 | Critical Care Progress Note ---
Date of Service March 03, 2022 Assessment & Plan (1) Admitted to intensive care unit: Plan: Reason Critically Ill: 56-year-old male with acute PE with saddle component requiring close hemodynamic monitoring and initiation of anticoagulation with possible need for progression to thrombolysis. NEURO - * CAM ICU: NEGATIVE CARDIAC/VASCULAR - * Elevated troponin: * Likely Type 2 NSTEMI secondary to demand ischemia in the setting of massive pulmonary clot burden. * EKG w/o significant findings. * w/o Complaints of chest pain. RESPIRATORY - * Saddle Pulmonary Embolism: * Half dose tPA administered yesterday * On heparin at this time GI/NUTRITION - * Progress diet as tolerated. RENAL/LYTES - * No significant electrolyte derangements. - * No concerns at this time. ENDO - * DMII presenting w/ Hyperglycemia: * BSGs per unit protocol. ISS -- * staff educator ordered HEME - * PE/DVT: * transttion to eliquis as heparin was noted to have faulty tubing ID - * No concerns for infectious contribution at this time. LINES/IV ACCESS - * PIVs x3 DVT PROPHYLAXIS - * Eliquis * SCDs Patient will be stable for downgrade at 1500 today which is 24 hours status post tPA administration. (2) Saddle embolism of pulmonary artery: (3) Pulmonary embolism: (4) DVT (deep venous thrombosis): (5) Nocturnal hypoxemia: (6) Obesity: (7) Severe obstructive sleep apnea: Admission and Anticipated Discharge Date Admission Date: March 01, 2022 Subjective Feels much improved, was able to get up and use toilet without dyspnea. No other complaints of chest pain, feels size of right lower extremity has also decreased. Physical Exam Physical Exam: General: Alert. nontoxic. Skin: Warm, dry, Head: Atraumatic Ears, nose, mouth and throat: airway patent Cardiovascular: Normal peripheral perfusion Respiratory: no respiratory distress Gastrointestinal: Non distended Musculoskeletal: No deformity Results & Data Results & Data ([facility]) Vital Signs (Past 12 Hours) Vital Signs Temp Pulse Resp BP Pulse Ox 03/03/22 08:00 94 H 03/03/22 06:00 85 17 128/89 94 03/03/22 05:00 93 H 17 124/84 92 03/03/22 04:00 36.8 C 83 20 118/83 93 03/03/22 03:00 84 21 128/93 93 03/03/22 02:00 89 17 129/88 92 03/03/22 01:11 92 H 18 125/89 95 03/03/22 00:00 36.9 C 79 20 113/81 94 03/02/22 23:00 90 22 128/75 95 Critical Care Results & Data Vital Signs (Past 12 Hours) Vital Signs Temp Pulse Resp BP Pulse Ox 03/03/22 08:00 94 H 03/03/22 06:00 85 17 128/89 94 03/03/22 05:00 93 H 17 124/84 92 03/03/22 04:00 36.8 C 83 20 118/83 93 03/03/22 03:00 84 21 128/93 93 03/03/22 02:00 89 17 129/88 92 03/03/22 01:11 92 H 18 125/89 95 03/03/22 00:00 36.9 C 79 20 113/81 94 03/02/22 23:00 90 22 128/75 95 Lab & Micro Results (Past 24 Hours) RBC 5.10 M/uL (4.7-6.1) 03/03/22 WBC 7.10 K/uL (4.8-10.8) 03/03/22 Hgb 15.5 g/dL (14.0-18.0) 03/03/22 Hct 45.7 % (42-52) 03/03/22 MCV 89.6 fL (80-100) 03/03/22 MCH 30.4 pg (25-34) 03/03/22 MCHC 33.9 g/dL (32-36) 03/03/22 RDW Standard Deviation 44.3 fL (36.4-46.3) 03/03/22 RDW Coefficient of Variation 13.5 % (11.5-14.5) 03/03/22 Plt Count 166 K/uL (130-400) 03/03/22 MPV 9.6 fL (7.4-10.4) 03/03/22 Neutrophils (%) (Auto) 62.5 % 03/03/22 Lymphocytes (%) (Auto) 22.3 % 03/03/22 Monocytes # (Auto) 0.81 K/uL (0.11-0.59) H 03/03/22 Eosinophils # (Auto) 0.16 K/uL (0-0.5) 03/03/22 Immature Granulocyte % (Auto) 1.1 % 03/03/22 Neutrophils # (Auto) 4.44 K/uL (1.4-6.5) 03/03/22 Lymphocytes # (Auto) 1.58 K/uL (1.2-3.4) 03/03/22 Monocytes # (Auto) 0.81 K/uL (0.11-0.59) H 03/03/22 Eosinophils # (Auto) 0.16 K/uL (0-0.5) 03/03/22 Basophils # (Auto) 0.03 K/uL (0-0.2) 03/03/22 Immature Granulocyte # (Auto) 0.08 K/uL (0.00-0.02) H 03/03/22 Na 135 mmol/L (136-145) L 03/03/22 K 3.8 mmol/L (3.5-5.1) 03/03/22 Cl 102 mmol/L (98-107) 03/03/22 CO2 24 mmol/L (21-32) 03/03/22 Anion Gap 9 (3-11) 03/03/22 BUN 10 mg/dl (6-23) 03/03/22 Creatinine 0.97 mg/dl (0.6-1.4) 03/03/22 Estimated GFR ( Amer) 100.7 ml/min 03/03/22 Estimated GFR (Non-Af Amer) 86.9 ml/min 03/03/22 BUN/Creatinine Ratio 10.3 (10-20) 03/03/22 Glu 257 mg/dl (70-99(Fasting)) H 03/03/22 Ca 8.8 mg/dl (8.5-10.1) 03/03/22 Phosphorus Level 1.9 mg/dl (2.5-4.9) L 03/03/22 Mg 1.8 mg/dl (1.7-2.4) 03/03/22 08:38 03/03/22 Calcium Level 8.8 mg/dl (8.5-10.1) 03/03/22 08:38 03/03/22 I & O Totals 24 Hours 03/02/22 03/03/22 03/04/22 06:59 06:59 06:59 Intake Total 2061.6 / 2061.6 3830.4 / 3830.4 Output Total 800 / 800 2351 / 2351 Balance 1261.6 / 1261.6 1479.4 / 1479.4 Cumulative 03/01/22 18:21 thru 03/03/22 09:37 Intake Total 5958.0 Output Total 3151 Balance 2807.0 RT Ventilator Mngmt (Last Documented) Ventilator Ordered Settings Respiratory Rate 17 03/03/22 06:00 Ventilator - PT Measurements Respiratory Rate 17 Coding Level of Care Code 41864 Subseq Hosp Care Lvl 3 Diagnoses Admitted to intensive care unit Z78.9 Saddle embolism of pulmonary artery I26.92 Pulmonary embolism I26.02 Acute cor pulmonale presence: with acute cor pulmonale Chronicity: acute Pulmonary embolism type: saddle DVT (deep venous thrombosis) I82.409 Affected thrombotic vein of extremity: unspecified vein of extremity Chronicity: acute DVT location: lower extremity Laterality: unspecified laterality Nocturnal hypoxemia G47.34 Obesity E66.9 Severe obstructive sleep apnea G47.33 (1) Pulmonary embolism Acute cor pulmonale presence: with acute cor pulmonale Chronicity: acute Pulmonary embolism type: saddle Qualified Code(s): I26.02 - Saddle embolus of pulmonary artery with acute cor pulmonale (2) DVT (deep venous thrombosis) Affected thrombotic vein of extremity: unspecified vein of extremity Chronicity: acute DVT location: lower extremity Laterality: unspecified laterality Qualified Code(s): I82.409 - Acute embolism and thrombosis of unspecified deep veins of unspecified lower extremity
[2022-03-03] MEDS: APIXABAN 5 MG TABLET PO SCH ×2 (10:41→21:02)
--- NOTE | 2022-03-03 12:26 | Hospitalist Progress Note ---
Date of Service March 03, 2022 Assessment & Plan (1) Saddle embolism of pulmonary artery: (2) DVT (deep venous thrombosis): (3) Severe obstructive sleep apnea: Plan: 56-year-old male, presents with shortness of breath, found to have saddle pulmonary embolism with extensive clot burden with right heart strain and right lower extremity deep venous thrombosis. 1. Shortness of breath secondary to saddle pulmonary embolism and also clots involving bilateral lung zones and severe clot burden and right ventricular strain and also extensive right lower extremity deep venous thrombosis, started on IV heparin. Troponin was slightly elevated at 70. Follow serial cardiac enzymes, echocardiogram. Closely monitor in the ICU. Continue IV heparin for now. IF Any deterioration plan for tPA as per ICU. The patient has no recent travel, no recent surgeries. The patient states his mom had clots couple of years ago. Needs workup once stable. Echo -normal LV chamber size with D-shaped septum. Normal LV systolic function, EF 60-65%. No segmental LV wall motion abnormalities are noted. RV cavity size is enlarged -proximal parasternal long axis and right ventricular outflow tract dimension greater than 3.3 cm. RV systolic function is reduced as assessed by tricuspid annular plane systolic excursion TAPSE less than 1.6 cm. Akinesis of the RV free wall with preserved apical wall motion (Seo's sign). Aortic valve sclerosis mild, without significant aortic valvular stenosis. No significant valvular pathology. Inadequate TR jet to calculate PASP. IVC not visualized. Above findings consistent with significant RV strain. 03/02 - Pt now receiving tPA , closely monitor in ICU 03/03 - patient is now on room air, switched to Eliquis in ICU, plan to downgrade from ICU later today 2. Morbid obesity: Needs counseling. 3. Obstructive sleep apnea: CPAP at bedtime. 4. DM type 2 (uncontrolled): Current A1c 13% Currently not on any home medications. Started here Lantus 6 units b.i.d. now increased to 15 bid, insulin sliding scale. Follow the blood sugars and adjust the insulin. Glycemic pharmacy consulted. Diabetic education, and close followup. DVT prophylaxis: S/p IV heparin. and half dose tPA. Now starting Eliquis DISPOSITION: Plan to downgrade fromICU to tele. Code: Full code. Admission and Anticipated Discharge Date Admission Date: March 01, 2022 Subjective Pt seen in follow-up of saddle PE, right lower extremity DVT Patient initially started on IV heparin, admitted to ICU Yesterday received tPA half dose Now patient is on room air, saturating in higher 90s% Reports feeling much better, denies any chest pain, increased shortness of breath. He was able to ambulate to the bathroom. No fevers, chills, abdominal pain, nausea vomiting Review of Systems Review of Systems: All systems reviewed & are unremarkable except as noted in Subjective Physical Exam Physical Exam: Ge; Alert and oriented.obese M Not in acute distress HEENT: NC/AT. EOMI. Pupils ISMAEL, atraumatic, no facial droop, Speech clear. Oral mucosa moist Neck No Jvd no neck masses CV: S1 and S2 heard , RRR, No murmurs Respiratory: Normal AP diameter,No accessory muscle use, CTA b/l No wheezing or crackles ABD; Soft, bowel sounds present, non tender, no distension SNACK STEWARD: Alert oriented, answering questions appropriately. Speech fluent, no facial asymmetry, moves extremities. Ext: Right lower extremity is swollen and mildly erythematous. Results & Data Results & Data ([facility]) Vital Signs (Past 12 Hours) Vital Signs Temp Pulse Resp BP Pulse Ox 03/03/22 11:20 36.9 C 03/03/22 11:13 88 21 131/102 H 03/03/22 11:12 87 24 03/03/22 10:05 91 H 24 126/85 03/03/22 10:03 88 96 03/03/22 09:01 91 H 25 H 110/78 03/03/22 09:00 89 26 H 95 03/03/22 08:00 94 H 03/03/22 07:15 37.2 C 03/03/22 06:00 85 17 128/89 94 03/03/22 05:00 93 H 17 124/84 92 03/03/22 04:00 36.8 C 83 20 118/83 93 03/03/22 03:00 84 21 128/93 93 03/03/22 02:00 89 17 129/88 92 03/03/22 01:11 92 H 18 125/89 95 Laboratory Results 03/03/22 03/03/22 03/03/22 Range/Units 11:11 08:38 08:38 WBC (4.8-10.8) K/uL RBC (4.7-6.1) M/uL Hgb (14.0-18.0) g/dL Hct (42-52) % MCV (80-100) fL MCH (25-34) pg MCHC (32-36) g/dL RDW Std Deviation (36.4-46.3) fL RDW Coeff of Deepak (11.5-14.5) % Plt Count (130-400) K/uL MPV (7.4-10.4) fL Immature Gran % (Auto) % Neut % (Auto) % Lymph % (Auto) % [place] % (Auto) % Eos % (Auto) % Baso % (Auto) % Neut # (Auto) (1.4-6.5) K/uL Lymph # (Auto) (1.2-3.4) K/uL [place] # (Auto) (0.11-0.59) K/uL Eos # (Auto) (0-0.5) K/uL Baso # (Auto) (0-0.2) K/uL Immature Gran # (Auto) (0.00-0.02) K/uL APTT 34.5 H (21.0-31.0) Seconds PTT Ratio 1.3 Fibrinogen 215 D (184-400) mg/dl Sodium 135 L (136-145) mmol/L Potassium 3.8 (3.5-5.1) mmol/L Chloride 102 (98-107) mmol/L Carbon Dioxide 24 (21-32) mmol/L Anion Gap 9 (3-11) BUN 10 (6-23) mg/dl Creatinine 0.97 (0.6-1.4) mg/dl Est Cr Clr Drug Dosing 121.0 ml/min Est GFR ( Amer) 100.7 ml/min Est GFR (Non-Af Amer) 86.9 ml/min BUN/Creatinine Ratio 10.3 (10-20) Glucose 257 H (70-99(Fasting)) mg/dl POC Glucose 99 (70-99) mg/dl Calcium 8.8 (8.5-10.1) mg/dl Phosphorus 1.9 L (2.5-4.9) mg/dl Magnesium 1.8 (1.7-2.4) mg/dl Troponin I High Sens (0-20) pg/ml Blood Type Antibody Screen 0503/03/22 03/03/22 Range/Units 08:38 07:22 01:26 WBC 7.10 (4.8-10.8) K/uL RBC 5.10 (4.7-6.1) M/uL Hgb 15.5 (14.0-18.0) g/dL Hct 45.7 (42-52) % MCV 89.6 (80-100) fL MCH 30.4 (25-34) pg MCHC 33.9 (32-36) g/dL RDW Std Deviation 44.3 (36.4-46.3) fL RDW Coeff of Deepak 13.5 (11.5-14.5) % Plt Count 166 (130-400) K/uL MPV 9.6 (7.4-10.4) fL Immature Gran % (Auto) 1.1 % Neut % (Auto) 62.5 % Lymph % (Auto) 22.3 % [place] % (Auto) 11.4 % Eos % (Auto) 2.3 % Baso % (Auto) 0.4 % Neut # (Auto) 4.44 (1.4-6.5) K/uL Lymph # (Auto) 1.58 (1.2-3.4) K/uL [place] # (Auto) 0.81 H (0.11-0.59) K/uL Eos # (Auto) 0.16 (0-0.5) K/uL Baso # (Auto) 0.03 (0-0.2) K/uL Immature Gran # (Auto) 0.08 H (0.00-0.02) K/uL APTT 31.0 (21.0-31.0) Seconds PTT Ratio 1.1 Fibrinogen 155 L (184-400) mg/dl Sodium (136-145) mmol/L Potassium (3.5-5.1) mmol/L Chloride (98-107) mmol/L Carbon Dioxide (21-32) mmol/L Anion Gap (3-11) BUN (6-23) mg/dl Creatinine (0.6-1.4) mg/dl Est Cr Clr Drug Dosing ml/min Est GFR ( Amer) ml/min Est GFR (Non-Af Amer) ml/min BUN/Creatinine Ratio (10-20) Glucose (70-99(Fasting)) mg/dl POC Glucose 226 H (70-99) mg/dl Calcium (8.5-10.1) mg/dl Phosphorus (2.5-4.9) mg/dl Magnesium (1.7-2.4) mg/dl Troponin I High Sens (0-20) pg/ml Blood Type Antibody Screen 03/02/22 03/02/22 03/02/22 Range/Units 20:48 20:16 18:06 WBC (4.8-10.8) K/uL RBC (4.7-6.1) M/uL Hgb (14.0-18.0) g/dL Hct (42-52) % MCV (80-100) fL MCH (25-34) pg MCHC (32-36) g/dL RDW Std Deviation (36.4-46.3) fL RDW Coeff of Deepak (11.5-14.5) % Plt Count (130-400) K/uL MPV (7.4-10.4) fL Immature Gran % (Auto) % Neut % (Auto) % Lymph % (Auto) % [place] % (Auto) % Eos % (Auto) % Baso % (Auto) % Neut # (Auto) (1.4-6.5) K/uL Lymph # (Auto) (1.2-3.4) K/uL [place] # (Auto) (0.11-0.59) K/uL Eos # (Auto) (0-0.5) K/uL Baso # (Auto) (0-0.2) K/uL Immature Gran # (Auto) (0.00-0.02) K/uL APTT 32.5 H 35.9 H (21.0-31.0) Seconds PTT Ratio 1.2 1.3 Fibrinogen 170 L D (184-400) mg/dl Sodium (136-145) mmol/L Potassium (3.5-5.1) mmol/L Chloride (98-107) mmol/L Carbon Dioxide (21-32) mmol/L Anion Gap (3-11) BUN (6-23) mg/dl Creatinine (0.6-1.4) mg/dl Est Cr Clr Drug Dosing ml/min Est GFR ( Amer) ml/min Est GFR (Non-Af Amer) ml/min BUN/Creatinine Ratio (10-20) Glucose (70-99(Fasting)) mg/dl POC Glucose 231 H (70-99) mg/dl Calcium (8.5-10.1) mg/dl Phosphorus (2.5-4.9) mg/dl Magnesium (1.7-2.4) mg/dl Troponin I High Sens (0-20) pg/ml Blood Type Antibody Screen 03/02/22 03/02/22 03/02/22 Range/Units 18:06 14:42 14:42 WBC (4.8-10.8) K/uL RBC (4.7-6.1) M/uL Hgb (14.0-18.0) g/dL Hct (42-52) % MCV (80-100) fL MCH (25-34) pg MCHC (32-36) g/dL RDW Std Deviation (36.4-46.3) fL RDW Coeff of Deepak (11.5-14.5) % Plt Count (130-400) K/uL MPV (7.4-10.4) fL Immature Gran % (Auto) % Neut % (Auto) % Lymph % (Auto) % [place] % (Auto) % Eos % (Auto) % Baso % (Auto) % Neut # (Auto) (1.4-6.5) K/uL Lymph # (Auto) (1.2-3.4) K/uL [place] # (Auto) (0.11-0.59) K/uL Eos # (Auto) (0-0.5) K/uL Baso # (Auto) (0-0.2) K/uL Immature Gran # (Auto) (0.00-0.02) K/uL APTT 38.0 H (21.0-31.0) Seconds PTT Ratio 1.4 Fibrinogen 378 (184-400) mg/dl Sodium (136-145) mmol/L Potassium (3.5-5.1) mmol/L Chloride (98-107) mmol/L Carbon Dioxide (21-32) mmol/L Anion Gap (3-11) BUN (6-23) mg/dl Creatinine (0.6-1.4) mg/dl Est Cr Clr Drug Dosing ml/min Est GFR ( Amer) ml/min Est GFR (Non-Af Amer) ml/min BUN/Creatinine Ratio (10-20) Glucose (70-99(Fasting)) mg/dl POC Glucose (70-99) mg/dl Calcium (8.5-10.1) mg/dl Phosphorus (2.5-4.9) mg/dl Magnesium (1.7-2.4) mg/dl Troponin I High Sens 32.2 H (0-20) pg/ml Blood Type O Positive Antibody Screen NEGATIVE Medications Administered Current Inpatient Medications Apixaban (Apixaban 5 Mg Tablet) 10 mg PO BID ANALI Stop: 03/10/22 10:14 Last Admin: 03/03/22 10:41 Dose: 10 mg Documented by: Dextrose (Dextrose 50% 50 Ml Syringe) 25 - 50 ml IV UD PRN; Protocol PRN Reason: Hypoglycemia Protocol Stop: 04/01/22 00:59 Glucagon (Glucagon For Inj 1 Mg Vial) 1 mg IM UD PRN; Protocol PRN Reason: Hypoglycemia Protocol Stop: 04/01/22 00:59 Glucose (Glucose 40% Gel 15 Gm Tube) 15 - 30 gm PO UD PRN; Protocol PRN Reason: Hypoglycemia Protocol Stop: 04/01/22 00:59 Glucose (Glucose 10 Tabs/Tube) 4 - 8 tabs PO UD PRN; Protocol PRN Reason: Hypoglycemia Protocol Stop: 04/01/22 00:59 Sodium Phosphate 12 mmol/ (Dextrose) 254 mls @ 88 mls/hr IV NOW ONE Stop: 03/03/22 12:53 Last Admin: 03/03/22 10:41 Dose: 88 mls/hr Documented by: Insulin Aspart (Insulin Aspart Per Unit) 0 units SC ACHS ANALI Stop: 04/01/22 00:44 Last Admin: 03/03/22 11:27 Dose: 9 units Documented by: Insulin Glargine (Insulin Glargine Solostar 100 Units/Ml 3 Ml Pen) 15 units SC BID ANALI Stop: 04/01/22 10:14 Last Admin: 03/03/22 07:32 Dose: 15 units Documented by: Miscellaneous (Remove Nicoderm Patch) 1 ea N/A DAILY@[id number] [facility] Stop: 04/01/22 08:58 Last Admin: 03/03/22 07:33 Dose: 1 ea Documented by: Miscellaneous (Carbohydrates For Hypoglycemia ) 15 - 30 gm PO UD PRN PRN Reason: Hypoglycemia Treatment Stop: 04/01/22 00:59 Nicotine (Nicotine 7 Mg/24 Hr Tdsy) 7 mg TD QAM ANALI Stop: 04/01/22 08:59 Last Admin: 03/03/22 07:30 Dose: 7 mg Documented by: (1) DVT (deep venous thrombosis) Affected thrombotic vein of extremity: unspecified vein of extremity Chronicity: acute DVT location: lower extremity Laterality: unspecified laterality Qualified Code(s): I82.409 - Acute embolism and thrombosis of unspecified deep veins of unspecified lower extremity
[2022-03-04 05:45] LABS: Basophils # (auto) 0.03 K/uL (0-0.2); Basophils % (auto) 0.4 %; Eosinophils % (auto) 2.8 %; Hematocrit (blood only) 44.8 % (42-52); Hemoglobin 15.2 g/dL (14.0-18.0); Immature Granulocytes # (auto) 0.08 K/uL (0.00-0.02); Immature Granulocytes % (auto) 1.1 %; Lymphocytes # (auto) 1.92 K/uL (1.2-3.4); Lymphocytes % (auto) 26.9 %; Mean Corpuscular Hemoglobin 31.4 pg (25-34); Mean Corpuscular Hgb Conc 33.9 g/dL (32-36); Mean Corpuscular Volume 92.6 fL (80-100); Mean Platelet Volume 9.6 fL (7.4-10.4); Monocytes # (auto) 0.87 K/uL (0.11-0.59); Monocytes % (auto) 12.2 %; Neutrophils # (auto) 4.03 K/uL (1.4-6.5); Neutrophils % (auto) 56.6 %; Platelet Count 181 K/uL (130-400); RDW Coefficient of Variation 13.5 % (11.5-14.5); RDW Standard Deviation 45.7 fL (36.4-46.3); Red Blood Count 4.84 M/uL (4.7-6.1); White Blood Count 7.13 K/uL (4.8-10.8)
[2022-03-04 06:32] LABS: Calcium 8.6 mg/dl (8.5-10.1); Creatinine Clr Calc Pharmacy 118.1 ml/min; Est GFR (African American) 97.1 ml/min; Est GFR (Non-African American) 83.8 ml/min; Phosphorus 3.9 mg/dl (2.5-4.9); Potassium 3.8 mmol/L (3.5-5.1)
[2022-03-04] MEDS: APIXABAN 5 MG TABLET PO SCH (07:43)
[2022-03-04] MEDS: NICOTINE 7 MG/24 HR TDSY TD SCH (07:44)
[2022-03-04] MEDS: INSULIN ASPART PER UNIT SC SCH ×2 (08:07→12:21)
[2022-03-04] MEDS: INSULIN GLARGINE SOLOSTAR 100 UNITS/ML 3 ML PEN SC SCH (08:07)
[2022-03-04] MEDS ORDERED: PHARMACY GLYCEMIC MGMT CONSULT PRN (09:34)
--- NOTE | 2022-03-04 10:20 | Pharmacy Report ---
Pharmacy Glycemic Short Note 2 - Date of Service March 04, 2022 - Glycemic Short BSG Results (Last 24 hours): 03/03/22 03/03/22 03/03/22 11:11 16:01 20:18 Glucose POC Glucose 99 133 H 150 H 03/04/22 03/04/22 05:24 07:32 Glucose 180 H POC Glucose 194 H OUTPATIENT ANTIDIABETIC REGIMEN: * none * A1 c = 13% (03/02/22) ASSESSMENT: * Raj is a 56 yo diabetic male admitted for saddle pulmonary embolism, RLE deep vein thrombosis * Significantly elevated A1c, not on anti-diabetic therapy as an out patient * Per CDE notes, patient is agreeable to discharge on once daily basal insulin + metformin * Patient received 62 units of SQ insulin yesterday (30 units Lantus + 32 units novolog) with decent BSG control. Fasting BSG remains elevated but is trending in the right direction. I suspect fasting will be near goal once basal insulin is at steady state. PLAN FOR INPATIENT GLYCEMIC CONTROL: * Start metformin ER 500 mg PO daily * Basal insulin * Lantus 15 units SQ this morning * Lantus 20 units SQ with lunch x 1 * Transition to once daily dosing on 03/05 * Bolus insulin * NovoLog per scale ACHS or Q6hrs while NPO * Goal Range: Low 110 mg/dL - High 140 mg/dL * Correction Factor: 25 mg/dL/unit * Nutritional / Prandial insulin per carb ratio of 1 unit per 8 grams CHO consumed DISCHARGE RECOMMENDATIONS: * Start metformin ER 500 mg daily with the evening meal * Start Basaglar insulin 30 units SQ administered once daily in the morning * Recommend close follow up post discharge for dose monitoring/adjustment * Refer to CDE recommendations for home monitoring Additional recommendations from Clinical Windows And Doors Installer (taken from Devora Chawla's note 03/02/22): RECOMMENDATIONS AT DISCHARGE: 1.) Continued lifestyle changes. 2.) SMBG at least 2x/day- fasting and another time (change this time from day to day). 3.) Basaglar 1x/day + Metformin ER 500mg daily with dinner meal. 4.) Work with outpatient provider to hopefully transition to more wt neural/losing diabetes meds once BG values are more stable. 5.) A1c > 9%- pt will need close follow-up post-discharge. RN coordinator notified to arrange. PRESCRIPTIONS NEEDED: 1.) Basaglar Kwbalbirpen. 2.) Pen [place] 32 gauge x . 3.) OneTouch Verio Test Strips to check 3x/day. 4.) Metformin ER.
[2022-03-04] MEDS ORDERED: metFORMIN HCL ER 500 MG TABCR PO SCH (11:30)
[2022-03-04] MEDS ORDERED: INSULIN GLARGINE SOLOSTAR 100 UNITS/ML 3 ML PEN SC ONE (11:30)
--- NOTE | 2022-03-04 14:40 | Discharge Summary ---
Date of Service March 04, 2022 Admission HPI Per Admitting Provider DATE OF ADMISSION: 03/01/2022. CHIEF COMPLAINT: Shortness of breath, right lower extremity edema. HISTORY OF PRESENT ILLNESS: This is a 56-year-old male with past medical history significant for morbid obesity, obstructive sleep apnea, on CPAP, diabetes, currently not on any medications, history of GERD, presents with shortness of breath. The patient stating yesterday noticed swelling in his right lower extremity and for the last 2 weeks, he is having dry cough on and off and when he was taking deep breath, he is getting cough and today he started to have shortness of breath, which brought him to the ER. Currently, saturating okay. His sugars when he came in were 324. Troponin of 70.Denies chest pain, No headache, No fevers, No nausea no abdominal pain, Normal bowel and bladder movements. Says his mother blood clots about two years ago. No recent travel or surgeries. Allergies NKDA. PMH As mentioned above PSH: Colonoscopy, EGF Medications : none FH: Father had copd, cad s/p cabg, Paternal Grandfather has DM, Brother has HTN SH: Snuff tobacco, Alcohol_social drinking, Smoked marijuana in the past ROS: As per HPI. Rest of ROS negative. Admission Exam Per Admitting Provider Ge; Alert and oriented. 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 Principal Diagnosis Saddle embolism of pulmonary artery DVT Severe obstructive sleep apnea Uncontrolled type II DM Discharge Exam GENERAL: Alert and oriented x3. NAD, on RA. Morbidly obese. HEENT: No pallor, no icterus. Pupils equal, round and reactive to light. Oral mucosa moist. NECK: No JVD, no neck masses. HEART: S1 and S2 heard. Regular rate and rhythm. No murmur, no gallop. RESPIRATORY SYSTEM: Normal AP diameter. No accessory muscle use. No wheezing, no crackles. ABDOMEN: Soft, bowel sounds present, nontender, no distention. CENTRAL NERVOUS SYSTEM: No facial droop. Speech is clear. Obeys simple commands. Moves extremities. EXTREMITIES: RLE trace edema, LLE no edema, no erythema seen. Discharge Data Allergies Allergy/AdvReac Type Severity Reaction Status Date / Time No Known Drug Allergies Allergy Unknown N/A Verified 03/01/22 19:50 Consultations 03/01/22 21:34 ED Decision to Admit Stat 03/02/22 00:28 Consult Technical System Analyst Routine Ordered Studies 03/01/22 19:19 US venous doppler LE RT Stat 03/01/22 19:23 CT angio chest PE protocol Urgent Diabetes Follow up Diabetes Follow-up Needed for HgbA1c >9% Hospital Course (1) Saddle embolism of pulmonary artery: (2) DVT (deep venous thrombosis): (3) Severe obstructive sleep apnea: 56-year-old male, presents with shortness of breath, found to have saddle pulmonary embolism with extensive clot burden with right heart strain and right lower extremity deep venous thrombosis. He was managed for the followin. Shortness of breath secondary to saddle pulmonary embolism and also clots involving bilateral lung zones and severe clot burden and right ventricular strain and also extensive right lower extremity deep venous thrombosis Status post tPA and IV heparin, will be discharged on Xarelto. Patient made aware of Xarelto regimen for first 21 days and from 22nd days and onwards. Troponin trended down, patient without any chest pain or shortness of breath. Patient hemodynamically stable on room air. Patient with family history of blood clot in mother, will need follow-up with roll panner in 2 to 3 months time. Patient agreeable to the cost of Xarelto which is $40 a month. 2. Morbid obesity: Needs counseling. 3. Obstructive sleep apnea: CPAP at bedtime. 4. DM type 2 (uncontrolled): Current A1c 13% Currently not on any home medications. Lifestyle changes, Basaglar insulin, metformin, close follow-up with [facility] as an outpatient. Patient being discharged home with following instruction at the point of disch arge: Follow-up with your primary care physician within a week time. Follow-up with [facility] for close monitoring of your diabetes as an outpatient, first visit within a week time. You will need to follow-up with hematology as an outpatient in 2 to 3 months time for your hypercoagulability work-up. Data blood work CBC and CMP done in a week time upon discharge, have the results forwarded to your primary care physician. As discussed at the bedside, you will be discharged on Xarelto [the blood thinner] due to your blood clot. You were to continue with Xarelto 15 mg twice a day for 21 days followed by 20 mg daily. Take Xarelto with food. As discussed at the bedside, you will be discharged on insulin and metformin for your diabetes which is uncontrolled. You will need to follow-up with [facility] within a week time upon discharge. Get your blood work CBC and CMP done in a week time and have the results forwarded to your primary care physician. You will likely benefit from outpatient sleep study, follow-up with your primary care physician. If you have any new chest pain/shortness of breath, contact your PCP or emergency immediately. Take medications as prescribed. Diabetes related RECOMMENDATIONS AT DISCHARGE: 1.) Continued lifestyle changes. 2.) SMBG at least 2x/day- fasting and another time (change this time from day to day). 3.) Basaglar 1x/day (as prescribed as above)+ Metformin ER 500mg daily with dinner meal. 4.) Work with outpatient provider to hopefully transition to more wt neural/losing diabetes meds once BG values are more stable. 5.) A1c > 9%- you will need close follow-up post-discharge. RN coordinator notified to arrange. F/u w/ [facility]. Total Time Total Time Spent Total Time Spent (In Minutes): 45 Discharge Plan Discharge Items Patient Disposition: Home - Self-Care Reason For Visit: SOB Discharge Diagnosis: Saddle embolism of pulmonary artery DVT Severe obstructive sleep apnea Uncontrolled type II DM Activity: Resume your previous activity Non-emergency contact: Primary Care Provider Call non-emergency contact if: you have any medication questions, your symptoms worsen and your temperature is above 101 Follow-up/Referrals: Davi Nixon MD [Primary Care Provider] - (Date & Time 03/09/2022 9:40 AM Provider Davi Nixon MD [facility] ) Diet: Carb Consistent or DM2 and Heart Healthy Addtl Attending Provider Instructions: Follow-up with your primary care physician within a week time. Follow-up with [facility] for close monitoring of your diabetes as an outpatient, first visit within a week time. You will need to follow-up with hematology as an outpatient in 2 to 3 months time for your hypercoagulability work-up. Data blood work CBC and CMP done in a week time upon discharge, have the results forwarded to your primary care physician. As discussed at the bedside, you will be discharged on Xarelto [the blood thinner] due to your blood clot. You were to continue with Xarelto 15 mg twice a day for 21 days followed by 20 mg daily. Take Xarelto with food. As discussed at the bedside, you will be discharged on insulin and metformin for your diabetes which is uncontrolled. You will need to follow-up with [facility] within a week time upon discharge. Get your blood work CBC and CMP done in a week time and have the results forwarded to your primary care physician. You will likely benefit from outpatient sleep study, follow-up with your primary care physician. If you have any new chest pain/shortness of breath, contact your PCP or emergency immediately. Take medications as prescribed. Diabetes related RECOMMENDATIONS AT DISCHARGE: 1.) Continued lifestyle changes. 2.) SMBG at least 2x/day- fasting and another time (change this time from day to day). 3.) Basaglar 1x/day (as prescribed as above)+ Metformin ER 500mg daily with dinner meal. 4.) Work with outpatient provider to hopefully transition to more wt neural/losing diabetes meds once BG values are more stable. 5.) A1c > 9%- you will need close follow-up post-discharge. RN coordinator notified to arrange. F/u w/ [facility]. Pending Studies at Discharge: No Stand-Alone Forms: [facility], Smoking Cessation Medications and DC Order Prescriptions: New Xarelto 15 mg tablet 15 mg PO BID 21 Days Qty: 42 RF: 0 Xarelto 20 mg tablet 20 mg PO DAILY Qty: 30 RF: 0 nicotine 7 mg/24 hr Patch 24 Hour 7 mg transdermal QAM 28 Days Qty: 28 RF: 0 metformin 500 mg Tablet Extended Release 24 Hr 500 mg PO QDD Qty: 30 RF: 0 Basaglar KwikPen U-100 Insulin 100 unit/mL (3 mL) insulin pen 30 unit subcut QAM Qty: 15 RF: 0 No Action No Known Home Medications RF: 0 Discharge Orders: Discharge Order (Routine); Ordered 03/04/22 Ordered By: Mika Poe/Other Patient Handouts: High Blood Sugar (Hyperglycemia), Hypoglycemia (Low Blood Sugar), Managing Type 2 Diabetes Admission Data Admit Date/Time: 03/01/22 23:00 Attending Provider: Mika Hinton Admit Provider: Alexx Traore Primary Care Provider: Davi Nixon Other Providers: Josué Hernandez ; Alexx Traore
== END 2022-03-04 16:16 | disposition home or self-care (01) | DRG 175 ==
LOC: ED 18:21 → 1E 23:00 → SUATTDRO 23:00 → 1E 03-02 00:08 → 2W 03-03 17:24